=== PATIENT | female | born 1945 | race Caucasian/White ===

== ENCOUNTER 2018-02-11 16:00 | Inpatient (IN) | payer MEDICARE, OTHER ==
--- NOTE | 2018-02-11 16:19 | ED Physician Chart ---
ED Chief Complaint/HPI - Patient Information Date Seen:: 02/11/18 Time Seen:: 16:15 Chief Complaint:: Agitation History of Present Illness:: onset x 2 days of agitation and hostile behavior; no report of trauma, SIs, H/as , neck pain, C/P, SOB, Abd. Pain, A/N/V/D/C, fever, chills, or urinary s/s Allergies:: Allergies Allergy/AdvReac Type Severity Reaction Status Date / Time No Known Allergies Allergy Verified 02/11/18 16:09 Historian:: Patient, EMS Review:: Nurse's Note Reviewed, Old Chart Reviewed, EMS run form Reviewed ED Review of Systems - Review of Systems General/Constitutional: No fever, No chills, No weight loss, No weakness, No diaphoresis, No edema, No loss of appetite Skin: No skin lesions, No rash, No bruising Head: No headache, No light-headedness Eyes: No loss of vision, No pain, No diplopia ENT: No earache, No nasal drainage, No sore throat, No tinnitus Neck: No neck pain, No swelling, No thyromegaly, No stiffness, No mass noted Cardio Vascular: No chest pain, No palpitations, No PND, No orthopnea, No edema Pulmonary: No SOB, No cough, No sputum, No wheezing GI: No nausea, No vomiting, No diarrhea, No pain, No melena, No hematochezia, No constipation, No hematemesis G/U: No dysuria, No frequency, No hematuria, No nacturia Amortization Schedule Clerk: No vaginal discharge, No abnormal vaginal bleed, No contraction Musculoskeletal: No bone or joint pain, No back pain, No muscle pain Endocrine: No polyuria, No polydipsia Psychiatric: Prior psych history, Depression, Anxiety, No suicidal ideation, No homicidal ideation, No auditory hallucination, No visual hallucination Hematopoietic: No bruising, No lymphadenopathy Allergic/Immuno: No urticaria, No angioedema Neurological: No syncope, No focal symptoms, No weakness, No paresthesia, No headache, No seizure, No dizziness, Confusion, No vertigo ED Past Medical History - Past Medical History Obtainable: Yes Past Medical History: HTN, Dementia Family History: HTN Social History: Non Smoker, No Alcohol, No Drug Use, Single, Care Facility Surgical History: None Psychiatricy History: Depression, Bipolar, Dementia Medication: Reviewed ED Physical Exam - Physical Examination General/Constitutional: Awake, Well-developed, well-nourished, Alert, No distress, GCS 15, Non-toxic appearing, Ambulatory Head: Atraumatic Eyes: Lids, conjuctiva normal, PERRL, EOMI Skin: Nl inspection, No rash, No skin lesions, No ecchymosis, Well hydrated, No lymphadenopathy ENMT: External ears, nose nl, TM canals nl, Nasal exam nl, Lips, teeth, gums nl , Oropharynx nl, Tonsils nl Neck: Nontender, Full ROM w/o pain, No JVD, No nuchal rigidity, No bruit, No mass, No stridor Respiratory: Nl effort/Exclusion, Clear to Auscultation, No Wheeze/Rhonchi/Rales Cardio Vascular: RRR, No murmur, gallop, rubs, NL S1 S2, Carotid/Femoral/Distal pulses equal bilaterally GI: No tenderness/rebounding/guarding, No organomegaly, No hernia, Normal BS's, Nondistended, No mass/bruits, No McBurney tenderness : No CVA tenderness Extremities: No tenderness or effusion, Full ROM, normal strength in all extremities, No edema, Normal digits & nails Neuro/Psych: DTR's symmetric, Normal sensory exam, Normal motor strength, Judgement/insight normal, Mood normal, Normal gait, No focal deficits Other Neuro/Psych comments:: + Psychomotor Agitation; no SIs; Mood/Affect: Labile; Disoriented and Confused Misc: Normal back, No paraspinal tenderness ED Labs/Radiology/EKG Results - Lab Results Comments:: unremarkable - EKG Interpretations EKG Time:: 16:30 Rate & Rhythm: 78; NSR Comments:: non-specific st-t changes ED Septic Shock - . Is Septic Shock (SBP<90, OR Lactate>4 mmol\L) present?: No ED Reassessment (Disposition) - Reassessment Reassessment Condition:: Improved - Diagnosis Diagnosis:: Dx: Agitation; Bipolar Disorder; Psychosis; Dementia; Medical Clearance; - Aftercare/Follow up Instructions Aftercare/Follow-Up Instructions:: Counseled pt regarding lab results/diagnosis & need follow up, Counseled pt & family regarding lab results/diagnosis & need follow up - Patient Disposition Discharge/Transfer:: Acute Care w/in this hosp Admitted to:: [facility] Condition at Disposition:: Stable, Improved ED Discharge Plan - Patient Disposition Instructions: Psychosis
[2018-02-11 16:33] LABS: % BASOPHILS 1.2 % (0.0-2.0); % EOSINOPHILS 4.2 % (0.0-5.0); % LYMPHOCYTES 20.6 % (20.0-50.0); % MONOCYTES 3.7 % (2.0-10.0); % NEUTROPHILS 70.3 % (40.0-80.0); BASOPHILE ABSOLUTE 0.1 Th/cumm (0-0.2); EOSINOPHILE ABSOLUTE 0.3 Th/cmm (0.1-0.4); HEMATOCRIT 37.3 % (41.0-60); HEMOGLOBIN 12.5 gm/dL (12-16); LYMPHOCYTE ABSOLUTE 1.6 Th/cmm (1.5-3.0); MEAN CELL VOLUME 91.1 fl (81-100); MEAN CORPUSCULAR HEMOGLOBIN 30.6 pg (27.0-31.0); MEAN CORPUSCULAR HGB CONC 33.5 pg (28.0-36.0); MEAN PLATELET VOLUME 7.5 fl; MONOCYTE ABSOLUTE 0.3 Th/cmm (0.3-1.0); NEUTROPHILE ABSOLUTE 5.5 Th/cmm (1.8-8.0); PLATELET COUNT 334 Th/cmm (150-400); RED CELL DISTRIBUTION WIDTH 12.9 % (11.5-20.0); WHITE BLOOD COUNT 7.8 Th/cmm (4.8-10.8)
[2018-02-11 16:52] LABS: ACETAMINOPHEN < 10.0 ug/mL (10.0-30.0); ALB/GLOB RATIO 1.7 (1.0-1.8); ALBUMIN 3.8 gm/dL (3.7-5.3); ALKALINE PHOSPHATASE 64 U/L (34-104); ANION GAP 12.7 (7.0-16.0); BILIRUBIN,TOTAL 0.2 mg/dL (0.3-1.0); BUN - UREA NITROGEN 23 mg/dL (7-25); CALCIUM SERUM 8.8 mg/dL (8.6-10.3); CARBON DIOXIDE 24.5 mEq/L (21.0-31.0); CHLORIDE 103 mEq/L (98-107); CHOLESTEROL 178 mg/dL (<200); CREATININE - SERUM 0.9 mg/dL (0.6-1.2); GLUCOSE 263 mg/dL (70-105); HDL -HIGH DENSITY LIPOPROTEIN 40 mg/dL (23-92); POTASSIUM SERUM 5.2 mEq/L (3.5-5.1); SALICYLATES (ASPIRIN) < 25.0 mg/L (30.0-100.0); SGOT 15 U/L (13-39); SGPT/ALT 23 U/L (7-52); SODIUM SERUM 135 mEq/L (136-145); TOTAL PROTEIN,SERUM 6.1 gm/dL (6.0-8.3); TRIGLYCERIDES 252 mg/dL (<150)
[2018-02-11] MEDS ORDERED: Maalox 30 mL Cup PO PRN (23:22)
[2018-02-11] MEDS ORDERED: Magnesium Hydroxide (MOM) 30 mL UDC PO PRN (23:22)
[2018-02-11 23:37] VITALS: BP 123/61
[2018-02-12] MEDS ORDERED: APAP/Codeine 300 mg/30 mg Tab PO PRN (06:49)
[2018-02-12] MEDS ORDERED: ENALAPRIL MALEATE 10 MG PO SCH (09:00)
[2018-02-12] MEDS ORDERED: [UNRECOGNIZED DRUG - OTHER] TP SCH (09:00)
--- NOTE | 2018-02-12 09:33 | History and Physical ---
History of Present Illness - HPI Chief Complaint: Increased in agitation HPI: Patient is a permanent resident of a SNF and was send for evaluation secondary to increased in agitation Vital Signs: Last Vital Signs Temp 98.0 F 02/12/18 05:35 Pulse 75 02/12/18 05:35 Resp 19 02/12/18 05:35 BP 119/51 02/12/18 05:35 Pulse Ox 96 02/12/18 05:35 Past Medical History Cardiovascular: Report: CAD, CHF, HTN, Other (Old ID) Pulmonary: Report: No Pertinent Hx [employer]: Report: No Pertinent Hx GI: Report: No Pertinent Hx Psych: Report: No Pertinent Hx Musculoskeletal: Report: No Pertinent Hx Rheumatologic: Report: No pertinent Hx Infectious Disease: Report: No Pertinent Hx Renal/: Report: No Pertinent Hx Endocrine: Report: Diabetes Dermatology: Report: No Pertinent Hx - Past Surgical History Past Surgical History: No pertinent Hx Family Medical History - Family Member Mother History Unknown: Yes Ethnicity: Unknown Living Status: Unknown Hx Family Cancer: (Unknown) Hx Family Coronary Artery Disease: (Unknown) Hx Family Congestive Heart Failure: (Unknown) Hx Family Hypertension: Yes Hx Family Stroke: (Unknown) Hx Family Diabetes: (Unknown) Hx Family Seizures: (Unknown) Hx Family Dementia: (Unknown) Hx Family AIDS: (Unknown) Hx Family COPD: (Unknown) Hx Family Hepatitis: (Unknown) Hx Family Psychiatric Problems: (Unknown) Hx Family Tuberculosis: (Unknown) Social History Smoke: No Alcohol: None Drugs: None Lives: Retirement Domestic Violence: Negative - Medications Home Medications: Home Medication Medication Instructions Recorded Type APAP/Codeine 300 mg/30 mg [Tylenol 1 tab PO TID PRN 02/11/18 History W/Codeine #3] Acetaminophen [Tylenol] 650 mg PO TID 02/11/18 History Aspirin [Aspirin Chewable] 81 mg PO DAILY 02/11/18 History Atorvastatin Calcium [Lipitor] 40 mg PO HS 02/11/18 History Bupropion HCl [Wellbutrin Xl] 150 mg PO DAILY 02/11/18 History Enalapril Maleate 10 mg PO DAILY 02/11/18 History Glimepiride 2 mg PO DAILY 02/11/18 History Hydroxychloroquine [Plaquenil*] 200 mg PO BID 02/11/18 History Insulin Glargine, Recombinan 5 units SUBQ QAM 02/11/18 History [Lantus] Insulin Human Regular [NovoLIN R] 0 units SUBQ BID 02/11/18 History Magnesium Hydroxide [Milk of 30 ml PO DAILY PRN 02/11/18 History Magnesia] Tad 1 unit TP DAILY 02/11/18 History aripIPRAZOLE [Abilify] 10 mg PO HS 02/11/18 History metFORMIN [Glucophage] 500 mg PO BID 02/11/18 History - Allergies Allergies/Adverse Reactions: Allergies Allergy/AdvReac Type Severity Reaction Status Date / Time No Known Allergies Allergy Verified 02/11/18 16:09 Review of Systems - Review of Systems Constitutional: Report: No Significant Eyes: Report: No Significant ENT: Report: No Significant Respiratory: Report: No Significant Cardiovascular: Report: No Significant Gastrointestinal: Report: No Significant Genitourinary: Report: No Significant Musculoskeletal: Report: No Significant Skin: Report: No Significant Neurological: Report: No Significant Physical Exam - Physical Exam HEENT: Report: Ears Nose Throat within normal limits Neck: Report: Within normal limits Cardiovascular Systems: Report: Regular, Rate and Rhythm Respiratory: Report: Breath Sounds are within normal limits Abdomen: Report: Non-tender to palpation Back: Report: Inspection of back is within normal limits. Extremities: Report: Non-tender to palpation. Skin: Report: Color of skin is within normal limits, Warm, Dry Neuro/Psych: Report: Disoriented to name time or place - Assessment Assessment: Current Active Problems Problem Status Onset INCREASED CONFUSION AND POOR ADLS Acute Patient is awake, resting in bed, confused, not oriented. Dx: Increased in agitation, DM, HTN, CAD, CHF. - Plan Plan: Patient under Psychiatric care, will continue with SNF meds. Will continue to monitor.
[2018-02-12] MEDS: Hydroxychloroquine 200 mg Tab PO SCH ×2 (10:01→17:36)
[2018-02-12] MEDS: buPROPion XL 150 mg T 24 H PO SCH (10:03)
[2018-02-12] MEDS: Aspirin 81mg Chewable Tab PO SCH (10:03)
[2018-02-12] MEDS: INSULIN ASPART SLIDING SCALE 100 UNITS/ML UNIT SUBQ SCH ×2 (17:35→17:38)
[2018-02-12] MEDS: Insulin Detemir 100 units/mL 10mL Vial SUBQ SCH (17:36)
--- NOTE | 2018-02-12 19:45 | Psychosocial Evaluation ---
DATE OF SERVICE: 02/12/2018 IDENTIFYING DATA: The patient is a 73-year-old woman, resident of [facility] in [place] Information obtained by directly interviewing the patient as well as reviewing the admission papers and they are reliable. JUSTIFICATION FOR HOSPITALIZATION: The patient is admitted on a voluntary basis in view of her agitation and screaming and yelling behaviors. CHIEF COMPLAINT: "I am in pain." HISTORY OF PRESENT ILLNESS: This is the first psychiatric hospitalization to [facility] for this patient who is reported to have been screaming and yelling and could not be contained and the patient has to be transferred over here for further care. The patient is stating that she is in too much of pain on his listening to her. The patient is getting easily irritable. The patient is getting very agitated. PAST PSYCHIATRIC HISTORY: Details are not known. MEDICAL HISTORY AND PHYSICAL EXAMINATION: Requested done by Dr. Allen. The patient has been diagnosed to have diabetes mellitus, hypertension, coronary artery disease and congestive heart failure. MENTAL STATUS EXAMINATION: The patient is a 73-year-old moderately obese, superficially cooperative. Eye contact is poor. Mood is noted to be irritable. Affect is constricted. Insight and judgment are very much impaired. Impulse control is very poor. Coping skills are noted to very poor. The patient is very paranoid, but denies any command hallucinations. The patient is alert and awake. The patient is fully aware that she is in the hospital. Her main focus is pain medications. The patient's attention span and concentration are noted to be poor. DIAGNOSTIC IMPRESSION: AXIS I: 1. Major depressive disorder, recurrent with psychotic symptoms. 2. Dementia and behavioral change, secondary trait. AXIS II: None. AXIS III: As per Dr. Allen. IMMEDIATE TREATMENT PLAN: The patient is going to be closely monitored on the inpatient unit, provided with supportive psychotherapy, once stabilized, the patient is going to be discharged to the family for followup. Discharged to the alf facility for further followup. JOB# [id number]
[2018-02-12 20:13] LABS: A1C % 7.4 % (4.0-6.0)
[2018-02-12] MEDS ORDERED: Non-Formulary Item 1 EA (Atorvastatin Calcium [Lipitor] 40 MG) PO SCH (21:00)
[2018-02-13] MEDS: INSULIN ASPART SLIDING SCALE 100 UNITS/ML UNIT SUBQ SCH ×2 (08:11→17:48)
[2018-02-13] MEDS: Insulin Detemir 100 units/mL 10mL Vial SUBQ SCH (08:11)
[2018-02-13] MEDS: Hydroxychloroquine 200 mg Tab PO SCH ×2 (08:56→17:47)
[2018-02-13] MEDS: buPROPion XL 150 mg T 24 H PO SCH (08:56)
[2018-02-13] MEDS: Aspirin 81mg Chewable Tab PO SCH (08:56)
--- NOTE | 2018-02-13 09:57 | General Progress Note ---
Subjective - Review of Systems Service Date: 02/13/18 Subjective: Confused Objective - Results Result Diagrams: 02/11/18 16:27 02/11/18 16:27 Recent Labs: Laboratory Last Values WBC 7.8 Th/cmm (4.8-10.8) 02/11/18 16:27 RBC 4.10 Mil/cmm (3.80-5.20) 02/11/18 16:27 Hgb 12.5 gm/dL (12-16) 02/11/18 16:27 Hct 37.3 % (41.0-60) L 02/11/18 16:27 MCV 91.1 fl (81-100) 02/11/18 16:27 MCH 30.6 pg (27.0-31.0) 02/11/18 16: MCHC Differential 33.5 pg (28.0-36.0) 02/11/18 16:27 RDW 12.9 % (11.5-20.0) 02/11/18 16:27 Plt Count 334 Th/cmm (150-400) 02/11/18 16:27 MPV 7.5 fl 02/11/18 16:27 Neutrophils % 70.3 % (40.0-80.0) 02/11/18 16: Lymphocytes % 20.6 % (20.0-50.0) 02/11/18 16: Monocytes % 3.7 % (2.0-10.0) 02/11/18 16:27 Eosinophils % 4.2 % (0.0-5.0) 02/11/18 16:27 Basophils % 1.2 % (0.0-2.0) 02/11/18 16:27 Sodium 135 mEq/L (136-145) L 02/11/18 16:27 Potassium 5.2 mEq/L (3.5-5.1) H 02/11/18 16:27 Chloride 103 mEq/L (98-107) 02/11/18 16:27 Carbon Dioxide 24.5 mEq/L (21.0-31.0) 02/11/18 16:27 Anion Gap 12.7 (7.0-16.0) 02/11/18 16:27 BUN 23 mg/dL (7-25) 02/11/18 16:27 Creatinine 0.9 mg/dL (0.6-1.2) 02/11/18 16:27 Est GFR ( Amer) TNP 02/11/18 16:27 Est GFR (Non-Af Amer) TNP 02/11/18 16:27 BUN/Creatinine Ratio 25.6 02/11/18 16:27 Glucose 263 mg/dL (70-105) H 02/11/18 16:27 Hemoglobin A1c % 7.4 % (4.0-6.0) H 02/11/18 16:27 Calcium 8.8 mg/dL (8.6-10.3) 02/11/18 16:27 Total Bilirubin 0.2 mg/dL (0.3-1.0) L 02/11/18 16:27 AST 15 U/L (13-39) 02/11/18 16:27 ALT 23 U/L (7-52) 02/11/18 16:27 Alkaline Phosphatase 64 U/L (34-104) 02/11/18 16:27 Total Protein 6.1 gm/dL (6.0-8.3) 02/11/18 16:27 Albumin 3.8 gm/dL (3.7-5.3) 02/11/18 16:27 Globulin 2.3 gm/dL 02/11/18 16:27 Albumin/Globulin Ratio 1.7 (1.0-1.8) 02/11/18 16:27 Triglycerides 252 mg/dL (<150) H 02/11/18 16:27 Cholesterol 178 mg/dL (<200) 02/11/18 16:27 LDL Cholesterol Direct 99 mg/dL (75-193) 02/11/18 16:27 HDL Cholesterol 40 mg/dL (23-92) 02/11/18 16:27 TSH 1.26 uIU/ml (0.34-5.60) 02/11/18 16:27 Salicylates < 25.0 mg/L (30.0-100.0) L 02/11/18 16:27 Acetaminophen < 10.0 ug/mL (10.0-30.0) L 02/11/18 16:27 Ethyl Alcohol < 10 mg/dL (0-10) 02/11/18 16:27 - Physical Exam Vitals and I&O: Vital Signs Temp 98.8 F 02/12/18 15:40 Pulse 80 02/13/18 08:10 Resp 20 02/12/18 20:00 BP 110/74 02/13/18 08:10 Pulse Ox 98 02/12/18 15:40 Intake & Output 02/12/18 02/13/18 02/13/18 18:59 06:59 18:59 Intake Total 840 Balance 840 Intake: Oral 840 Other: # Voids 3 # Bowel Movements 0 Active Medications: Current Medications Acetaminophen (Tylenol) 650 mg PO Q4HR PRN PRN Reason: Mild Pain / Temp above 100 Stop: 04/12/18 23:21 Last Admin: 02/13/18 02:37 Dose: 650 mg Acetaminophen/Codeine Phosphate (Tylenol W/Codeine #3) 1 tab PO TID PRN PRN Reason: PAIN Stop: 04/13/18 06:48 Al Hydrox/Mg Hydrox/Simethicone (Maalox) 30 ml PO Q4HR PRN PRN Reason: GI DISTRESS Stop: 04/12/18 23:21 Aripiprazole (Abilify) 5 mg PO DAILY URSZULA PRN Reason: Protocol Stop: 04/14/18 08:59 Last Admin: 02/13/18 08:56 Dose: 5 mg Aspirin (Aspirin Chewable) 81 mg PO DAILY REPLACED BY [facility] Stop: 04/13/18 08:59 Last Admin: 02/13/18 08:56 Dose: 81 mg Atorvastatin Calcium (Lipitor) 40 mg PO HS REPLACED BY [facility] Stop: 04/13/18 20:59 Last Admin: 02/12/18 21:00 Dose: 40 mg Bupropion HCl (Wellbutrin Xl) 150 mg PO DAILY REPLACED BY [facility] PRN Reason: Protocol Stop: 04/13/18 08:59 Last Admin: 02/13/18 08:56 Dose: 150 mg Enalapril Maleate (Vasotec) 10 mg PO DAILY REPLACED BY [facility] Stop: 04/13/18 08:59 Last Admin: 02/13/18 08:10 Dose: Not Given Glimepiride (Amaryl) 2 mg PO DAILY REPLACED BY [facility] Stop: 04/13/18 08:59 Last Admin: 02/13/18 08:56 Dose: 2 mg Hydroxychloroquine Sulfate (Plaquenil) 200 mg PO BID REPLACED BY [facility] Stop: 04/13/18 08:59 Last Admin: 02/13/18 08:56 Dose: 200 mg Insulin Aspart (Novolog Insulin Sliding Scale) 0 units SUBQ BID URSZULA PRN Reason: Protocol Stop: 04/13/18 08:59 Last Admin: 02/13/18 08:11 Dose: Not Given Insulin Detemir (Levemir Insulin) 5 units SUBQ DAILY URSZULA PRN Reason: Protocol Stop: 04/13/18 08:59 Last Admin: 02/13/18 08:11 Dose: Not Given Lorazepam (Ativan) 0.5 mg PO Q4HR PRN; Protocol PRN Reason: Anxiety Stop: 03/13/18 23:21 Magnesium Hydroxide (Milk Of Magnesia) 30 ml PO HS PRN PRN Reason: Constipation Metformin HCl (Glucophage) 500 mg PO BIDWM URSZULA Stop: 04/13/18 07:59 Last Admin: 02/13/18 08:56 Dose: 500 mg Zolpidem Tartrate (Ambien) 5 mg PO HS PRN PRN Reason: Insomnia Stop: 04/12/18 23:21 General: Alert, Other (Confused) HEENT: Atraumatic Neck: Supple Cardiovascular: Regular rate Lungs: Clear to auscultation Abdomen: Bowel sounds Extremities: Other (No edema) Neurological: Other (Unstable gait) Skin: Other (Warm and dry) Psych/Mental Status: Other (Confused not oriented) Assessment/Plan - Problem List Patient Problems: All Active Problems INCREASED CONFUSION AND POOR ADLS (Acute) - Assessment Assessment: Current Active Problems Problem Status Onset INCREASED CONFUSION AND POOR ADLS Acute Patient is awake, resting in bed, confused, not oriented. Dx: Increased in agitation, DM, HTN, CAD, CHF. - Plan Plan: Patient under Psychiatric care, will continue with SNF meds. Will continue to monitor.
--- NOTE | 2018-02-14 02:32 | Progress Notes ---
DATE: 02/13/2018 SUBJECTIVE: Staff was spoken to. The patient is interviewed. Mood is noted to be irritable. Affect is constricted. Insight and judgment are noted to be still impaired. Impulse control is noted to be poor. The patient is stating that she is under too much of pain and needs to be seen by doctor. The patient has been given lorazepam to contain her anxiety. The patient is currently on bupropion and has been able to tolerate the medications. No side effects to the medications are noted; however, the patient is noted to be still depressed. PLAN: To continue the patient with the Wellbutrin and the use of Ativan on a p.r.n. basis and follow the patient up. [facility]# [id number]
[2018-02-14 07:48] LABS: % BASOPHILS 0.8 % (0.0-2.0); % LYMPHOCYTES 27.5 % (20.0-50.0); % NEUTROPHILS 61.7 % (40.0-80.0); BASOPHILE ABSOLUTE 0.1 Th/cumm (0-0.2); EOSINOPHILE ABSOLUTE 0.2 Th/cmm (0.1-0.4); HEMATOCRIT 36.7 % (41.0-60); HEMOGLOBIN 12.3 gm/dL (12-16); LYMPHOCYTE ABSOLUTE 1.8 Th/cmm (1.5-3.0); MEAN CELL VOLUME 90.1 fl (81-100); MEAN CORPUSCULAR HEMOGLOBIN 30.1 pg (27.0-31.0); MEAN CORPUSCULAR HGB CONC 33.4 pg (28.0-36.0); MEAN PLATELET VOLUME 7.8 fl; MONOCYTE ABSOLUTE 0.5 Th/cmm (0.3-1.0); NEUTROPHILE ABSOLUTE 4.1 Th/cmm (1.8-8.0); PLATELET COUNT 323 Th/cmm (150-400); RED BLOOD COUNT 4.08 Mil/cmm (3.80-5.20); RED CELL DISTRIBUTION WIDTH 12.2 % (11.5-20.0); WHITE BLOOD COUNT 6.7 Th/cmm (4.8-10.8)
[2018-02-14 08:11] LABS: ALB/GLOB RATIO 1.4 (1.0-1.8); ALBUMIN 3.6 gm/dL (3.7-5.3); ALKALINE PHOSPHATASE 56 U/L (34-104); ANION GAP 11.3 (7.0-16.0); BILIRUBIN,TOTAL 0.4 mg/dL (0.3-1.0); BUN - UREA NITROGEN 16 mg/dL (7-25); CARBON DIOXIDE 24.9 mEq/L (21.0-31.0); CHLORIDE 105 mEq/L (98-107); CREATININE - SERUM 0.5 mg/dL (0.6-1.2); GLUCOSE 152 mg/dL (70-105); POTASSIUM SERUM 4.2 mEq/L (3.5-5.1); SGOT 13 U/L (13-39); SGPT/ALT 15 U/L (7-52); SODIUM SERUM 137 mEq/L (136-145); TOTAL PROTEIN,SERUM 6.2 gm/dL (6.0-8.3)
--- NOTE | 2018-02-14 08:55 | General Progress Note ---
Subjective - Review of Systems Service Date: 02/14/18 Subjective: Confused Objective - Results Result Diagrams: 02/14/18 07:07 02/14/18 07:07 Recent Labs: Laboratory Last Values WBC 6.7 Th/cmm (4.8-10.8) 02/14/18 07:07 RBC 4.08 Mil/cmm (3.80-5.20) 02/14/18 07:07 Hgb 12.3 gm/dL (12-16) 02/14/18 07:07 Hct 36.7 % (41.0-60) L 02/14/18 07:07 MCV 90.1 fl (81-100) 02/14/18 07:07 MCH 30.1 pg (27.0-31.0) 02/14/18 07:07 MCHC Differential 33.4 pg (28.0-36.0) 02/14/18 07:07 RDW 12.2 % (11.5-20.0) 02/14/18 07:07 Plt Count 323 Th/cmm (150-400) 02/14/18 07:07 MPV 7.8 fl 02/14/18 07:07 Neutrophils % 61.7 % (40.0-80.0) 02/14/18 07:07 Lymphocytes % 27.5 % (20.0-50.0) 02/14/18 07:07 Monocytes % 7.0 % (2.0-10.0) 02/14/18 07:07 Eosinophils % 3.0 % (0.0-5.0) 02/14/18 07:07 Basophils % 0.8 % (0.0-2.0) 02/14/18 07:07 Sodium 137 mEq/L (136-145) 02/14/18 07:07 Potassium 4.2 mEq/L (3.5-5.1) 02/14/18 07:07 Chloride 105 mEq/L (98-107) 02/14/18 07:07 Carbon Dioxide 24.9 mEq/L (21.0-31.0) 02/14/18 07:07 Anion Gap 11.3 (7.0-16.0) 02/14/18 07:07 BUN 16 mg/dL (7-25) 02/14/18 07:07 Creatinine 0.5 mg/dL (0.6-1.2) L 02/14/18 07:07 Est GFR ( Amer) TNP 02/14/18 07:07 Est GFR (Non-Af Amer) TNP 02/14/18 07:07 BUN/Creatinine Ratio 32.0 02/14/18 07:07 Glucose 152 mg/dL (70-105) H 02/14/18 07:07 Hemoglobin A1c % 7.4 % (4.0-6.0) H 02/11/18 16:27 Calcium 9.0 mg/dL (8.6-10.3) 02/14/18 07:07 Total Bilirubin 0.4 mg/dL (0.3-1.0) 02/14/18 07:07 AST 13 U/L (13-39) 02/14/18 07:07 ALT 15 U/L (7-52) 02/14/18 07:07 Alkaline Phosphatase 56 U/L (34-104) 02/14/18 07:07 Total Protein 6.2 gm/dL (6.0-8.3) 02/14/18 07:07 Albumin 3.6 gm/dL (3.7-5.3) L 02/14/18 07:07 Globulin 2.6 gm/dL 02/14/18 07:07 Albumin/Globulin Ratio 1.4 (1.0-1.8) 02/14/18 07:07 Triglycerides 252 mg/dL (<150) H 02/11/18 16:27 Cholesterol 178 mg/dL (<200) 02/11/18 16:27 LDL Cholesterol Direct 99 mg/dL (75-193) 02/11/18 16:27 HDL Cholesterol 40 mg/dL (23-92) 02/11/18 16:27 TSH 1.26 uIU/ml (0.34-5.60) 02/11/18 16:27 Salicylates < 25.0 mg/L (30.0-100.0) L 02/11/18 16:27 Acetaminophen < 10.0 ug/mL (10.0-30.0) L 02/11/18 16:27 Ethyl Alcohol < 10 mg/dL (0-10) 02/11/18 16:27 RPR NONREACTIVE (NONREACTIVE) 02/11/18 16:27 - Physical Exam Vitals and I&O: Vital Signs Temp 98.2 F 02/13/18 16:22 Pulse 70 02/13/18 16:22 Resp 20 02/13/18 19:16 BP 120/60 02/13/18 16:22 Pulse Ox 98 02/13/18 16:22 Active Medications: Current Medications Acetaminophen (Tylenol) 650 mg PO Q4HR PRN PRN Reason: Mild Pain / Temp above 100 Stop: 04/12/18 23:21 Last Admin: 02/13/18 17:47 Dose: 650 mg Acetaminophen/Codeine Phosphate (Tylenol W/Codeine #3) 1 tab PO TID PRN PRN Reason: PAIN Stop: 04/13/18 06:48 Al Hydrox/Mg Hydrox/Simethicone (Maalox) 30 ml PO Q4HR PRN PRN Reason: GI DISTRESS Stop: 04/12/18 23:21 Aripiprazole (Abilify) 5 mg PO DAILY URSZULA PRN Reason: Protocol Stop: 04/14/18 08:59 Last Admin: 02/13/18 08:56 Dose: 5 mg Aspirin (Aspirin Chewable) 81 mg PO DAILY [facility] Stop: 04/13/18 08:59 Last Admin: 02/13/18 08:56 Dose: 81 mg Atorvastatin Calcium (Lipitor) 40 mg PO HS [facility] Stop: 04/13/18 20:59 Last Admin: 02/13/18 21:01 Dose: 40 mg Bupropion HCl (Wellbutrin Xl) 150 mg PO DAILY URSZULA PRN Reason: Protocol Stop: 04/13/18 08:59 Last Admin: 02/13/18 08:56 Dose: 150 mg Enalapril Maleate (Vasotec) 10 mg PO DAILY URSZULA Stop: 04/13/18 08:59 Last Admin: 02/13/18 08:10 Dose: Not Given Glimepiride (Amaryl) 2 mg PO DAILY [facility] Stop: 04/13/18 08:59 Last Admin: 02/13/18 08:56 Dose: 2 mg Hydroxychloroquine Sulfate (Plaquenil) 200 mg PO BID URSZULA Stop: 04/13/18 08:59 Last Admin: 02/13/18 17:47 Dose: 200 mg Insulin Aspart (Novolog Insulin Sliding Scale) 0 units SUBQ BID URSZULA PRN Reason: Protocol Stop: 04/13/18 08:59 Last Admin: 02/13/18 17:48 Dose: Not Given Insulin Detemir (Levemir Insulin) 5 units SUBQ DAILY URSZULA PRN Reason: Protocol Stop: 04/13/18 08:59 Last Admin: 02/13/18 08:11 Dose: Not Given Lorazepam (Ativan) 0.5 mg PO Q4HR PRN; Protocol PRN Reason: Anxiety Stop: 03/13/18 23:21 Magnesium Hydroxide (Milk Of Magnesia) 30 ml PO HS PRN PRN Reason: Constipation Metformin HCl (Glucophage) 500 mg PO BIDWM URSZULA Stop: 04/13/18 07:59 Last Admin: 02/13/18 17:47 Dose: 500 mg Zolpidem Tartrate (Ambien) 5 mg PO HS PRN PRN Reason: Insomnia Stop: 04/12/18 23:21 General: Alert, Other (Confused) HEENT: Atraumatic Neck: Supple Cardiovascular: Regular rate Lungs: Clear to auscultation Abdomen: Bowel sounds Extremities: Other (No edema) Neurological: Other (Unstable gait) Skin: Other (Warm and dry) Psych/Mental Status: Other (Confused not oriented) Assessment/Plan - Problem List Patient Problems: All Active Problems INCREASED CONFUSION AND POOR ADLS (Acute) - Assessment Assessment: Current Active Problems Problem Status Onset INCREASED CONFUSION AND POOR ADLS Acute Patient is awake, resting in bed, confused, not oriented. Dx: Increased in agitation, DM, HTN, CAD, CHF. - Plan Plan: Patient under Psychiatric care, will continue with SNF meds. Will continue to monitor.
[2018-02-14] MEDS: Hydroxychloroquine 200 mg Tab PO SCH ×2 (09:55→17:19)
[2018-02-14] MEDS: buPROPion XL 150 mg T 24 H PO SCH (09:55)
[2018-02-14] MEDS: Aspirin 81mg Chewable Tab PO SCH (09:55)
[2018-02-14] MEDS: INSULIN ASPART SLIDING SCALE 100 UNITS/ML UNIT SUBQ SCH ×2 (09:55→17:20)
[2018-02-14] MEDS: Insulin Detemir 100 units/mL 10mL Vial SUBQ SCH (09:56)
--- NOTE | 2018-02-15 04:31 | Progress Notes ---
DATE: 02/14/2018 PSYCHIATRIC PROGRESS NOTE Staff was spoken to. The patient is interviewed. Mood is noted to be depressed. Affect is constricted. The patient is isolative and withdrawn. The patient has been reluctant to take the medication earlier, but finally has agreed to take it. Insight and judgment at this time are noted to be still impaired. Impulse control seems to be limited. Coping skills are noted to be limited. The patient has been getting easily frustrated. ASSESSMENT: The patient is still impulsive. PLAN: To continue the patient with the supportive therapy and followup. JOB# [id number]
[2018-02-15] MEDS: Hydroxychloroquine 200 mg Tab PO SCH ×2 (08:27→17:41)
[2018-02-15] MEDS: Aspirin 81mg Chewable Tab PO SCH (08:28)
[2018-02-15] MEDS: buPROPion XL 150 mg T 24 H PO SCH (08:29)
[2018-02-15] MEDS: INSULIN ASPART SLIDING SCALE 100 UNITS/ML UNIT SUBQ SCH ×2 (08:29→17:26)
--- NOTE | 2018-02-15 09:34 | General Progress Note ---
Subjective - Review of Systems Service Date: 02/15/18 Subjective: Confused Objective - Results Result Diagrams: 02/14/18 07:07 02/14/18 07:07 Recent Labs: Laboratory Last Values WBC 6.7 Th/cmm (4.8-10.8) 02/14/18 07:07 RBC 4.08 Mil/cmm (3.80-5.20) 02/14/18 07:07 Hgb 12.3 gm/dL (12-16) 02/14/18 07:07 Hct 36.7 % (41.0-60) L 02/14/18 07:07 MCV 90.1 fl (81-100) 02/14/18 07:07 MCH 30.1 pg (27.0-31.0) 02/14/18 07:07 MCHC Differential 33.4 pg (28.0-36.0) 02/14/18 07:07 RDW 12.2 % (11.5-20.0) 02/14/18 07:07 Plt Count 323 Th/cmm (150-400) 02/14/18 07:07 MPV 7.8 fl 02/14/18 07:07 Neutrophils % 61.7 % (40.0-80.0) 02/14/18 07:07 Lymphocytes % 27.5 % (20.0-50.0) 02/14/18 07:07 Monocytes % 7.0 % (2.0-10.0) 02/14/18 07:07 Eosinophils % 3.0 % (0.0-5.0) 02/14/18 07:07 Basophils % 0.8 % (0.0-2.0) 02/14/18 07:07 Sodium 137 mEq/L (136-145) 02/14/18 07:07 Potassium 4.2 mEq/L (3.5-5.1) 02/14/18 07:07 Chloride 105 mEq/L (98-107) 02/14/18 07:07 Carbon Dioxide 24.9 mEq/L (21.0-31.0) 02/14/18 07:07 Anion Gap 11.3 (7.0-16.0) 02/14/18 07:07 BUN 16 mg/dL (7-25) 02/14/18 07:07 Creatinine 0.5 mg/dL (0.6-1.2) L 02/14/18 07:07 Est GFR ( Amer) TNP 02/14/18 07:07 Est GFR (Non-Af Amer) TNP 02/14/18 07:07 BUN/Creatinine Ratio 32.0 02/14/18 07:07 Glucose 152 mg/dL (70-105) H 02/14/18 07:07 Hemoglobin A1c % 7.4 % (4.0-6.0) H 02/11/18 16:27 Calcium 9.0 mg/dL (8.6-10.3) 02/14/18 07:07 Total Bilirubin 0.4 mg/dL (0.3-1.0) 02/14/18 07:07 AST 13 U/L (13-39) 02/14/18 07:07 ALT 15 U/L (7-52) 02/14/18 07:07 Alkaline Phosphatase 56 U/L (34-104) 02/14/18 07:07 Total Protein 6.2 gm/dL (6.0-8.3) 02/14/18 07:07 Albumin 3.6 gm/dL (3.7-5.3) L 02/14/18 07:07 Globulin 2.6 gm/dL 02/14/18 07:07 Albumin/Globulin Ratio 1.4 (1.0-1.8) 02/14/18 07:07 Triglycerides 252 mg/dL (<150) H 02/11/18 16:27 Cholesterol 178 mg/dL (<200) 02/11/18 16:27 LDL Cholesterol Direct 99 mg/dL (75-193) 02/11/18 16:27 HDL Cholesterol 40 mg/dL (23-92) 02/11/18 16:27 TSH 1.26 uIU/ml (0.34-5.60) 02/11/18 16:27 Salicylates < 25.0 mg/L (30.0-100.0) L 02/11/18 16:27 Acetaminophen < 10.0 ug/mL (10.0-30.0) L 02/11/18 16:27 Ethyl Alcohol < 10 mg/dL (0-10) 02/11/18 16:27 RPR NONREACTIVE (NONREACTIVE) 02/11/18 16:27 - Physical Exam Vitals and I&O: Vital Signs Temp 98.2 F 02/15/18 05:41 Pulse 72 02/15/18 08:28 Resp 18 02/15/18 05:41 BP 114/62 02/15/18 08:28 Pulse Ox 98 02/15/18 05:41 Intake & Output 02/14/18 02/15/18 02/15/18 18:59 06:59 18:59 Intake Total 480 Balance 480 Intake: Oral 480 Other: # Voids 2 Active Medications: Current Medications Acetaminophen (Tylenol) 650 mg PO Q4HR PRN PRN Reason: Mild Pain / Temp above 100 Stop: 04/12/18 23:21 Last Admin: 02/13/18 17:47 Dose: 650 mg Acetaminophen/Codeine Phosphate (Tylenol W/Codeine #3) 1 tab PO TID PRN PRN Reason: PAIN Stop: 04/13/18 06:48 Al Hydrox/Mg Hydrox/Simethicone (Maalox) 30 ml PO Q4HR PRN PRN Reason: GI DISTRESS Stop: 04/12/18 23:21 Aripiprazole (Abilify) 5 mg PO DAILY [facility] PRN Reason: Protocol Stop: 04/14/18 08:59 Last Admin: 02/15/18 08:29 Dose: 5 mg Aspirin (Aspirin Chewable) 81 mg PO DAILY [facility] Stop: 04/13/18 08:59 Last Admin: 02/15/18 08:28 Dose: 81 mg Atorvastatin Calcium (Lipitor) 40 mg PO HS [facility] Stop: 04/13/18 20:59 Last Admin: 02/14/18 21:17 Dose: 40 mg Bupropion HCl (Wellbutrin Xl) 150 mg PO DAILY [facility] PRN Reason: Protocol Stop: 04/13/18 08:59 Last Admin: 02/15/18 08:29 Dose: 150 mg Enalapril Maleate (Vasotec) 10 mg PO DAILY [facility] Stop: 04/13/18 08:59 Last Admin: 02/15/18 08:28 Dose: 10 mg Glimepiride (Amaryl) 2 mg PO DAILY [facility] Stop: 04/13/18 08:59 Last Admin: 02/15/18 08:29 Dose: 2 mg Hydroxychloroquine Sulfate (Plaquenil) 200 mg PO BID [facility] Stop: 04/13/18 08:59 Last Admin: 02/15/18 08:27 Dose: 200 mg Insulin Aspart (Novolog Insulin Sliding Scale) 0 units SUBQ BID [facility] PRN Reason: Protocol Stop: 04/13/18 08:59 Last Admin: 02/15/18 08:29 Dose: Not Given Insulin Aspart (Novolog Insulin Sliding Scale) 0 units SUBQ BID [facility] PRN Reason: Protocol Stop: 04/16/18 16:59 Lorazepam (Ativan) 0.5 mg PO Q4HR PRN; Protocol PRN Reason: Anxiety Stop: 03/13/18 23:21 Last Admin: 02/14/18 21:17 Dose: 0.5 mg Magnesium Hydroxide (Milk Of Magnesia) 30 ml PO HS PRN PRN Reason: Constipation Metformin HCl (Glucophage) 500 mg PO BIDWM [facility] Stop: 04/13/18 07:59 Last Admin: 02/15/18 08:28 Dose: 500 mg Zolpidem Tartrate (Ambien) 5 mg PO HS PRN PRN Reason: Insomnia Stop: 04/12/18 23:21 Last Admin: 02/14/18 21:17 Dose: 5 mg General: Alert, Other (Confused) HEENT: Atraumatic Neck: Supple Cardiovascular: Regular rate Lungs: Clear to auscultation Abdomen: Bowel sounds Extremities: Other (No edema) Neurological: Other (Unstable gait) Skin: Other (Warm and dry) Psych/Mental Status: Other (Confused not oriented) Assessment/Plan - Problem List Patient Problems: All Active Problems INCREASED CONFUSION AND POOR ADLS (Acute) - Assessment Assessment: Current Active Problems Problem Status Onset INCREASED CONFUSION AND POOR ADLS Acute Patient is awake, resting in bed, confused, not oriented. Dx: Increased in agitation, DM, HTN, CAD, CHF. - Plan Plan: Patient under Psychiatric care, will continue with SNF meds. Will continue to monitor. Nutritional Asmnt/Malnutr-PDOC - Dietary Evaluation Malnutrition Findings (Please click <Entered> for more info): Nutritional Asmnt/Malnutrition Start: 02/14/18 15: 07 Text: Status: Complete Freq: Document 02/14/18 15:07 YULIANA (Rec: 02/14/18 15:18 ARIANNA [email or web address]) Nutritional Asmnt/Malnutrition Patient General Information Nutritional Screening High Risk Diagnosis psychosis Pertinent Medical Hx/Surgical Hx CAD, CHF, HTN, old [place], DM Subjective Information Pt seen lying in bed at time of visit, very confused, not able to communicate. Per EMR, PO intake 50-100%, 100% x 3 meals yesterday 02/13. Pt blood sugar 263 at admission and pt refused insulin noted. Current Diet Order/ Nutrition Support [facility] [place] 45, [facility] soft ground Pertinent Medications novolog, levemir, glucophage Pertinent Labs 02/11 na 135, K 5.2, glucose 263 , A1c 7.4 02/14 Cr 0.5, glucose 152, Alb 3 .6 Nutritional Hx/Data Height 1.63 m Height (Calculated Centimeters) 162.6 Current Weight (lbs) 72.575 kg Weight (Calculated Kilograms) 72.6 Weight (Calculated Grams) 95980.8 [place] Body Weight 120 Body Mass Index (BMI) 27.4 Weight Status Overweight GI Symptoms GI Symptoms None Last BM 0 Difficult in: None Skin Integrity/Comment: intact, sherron 15 Current %PO Good (75-100%) Estimated Nutritional Goals BEE in Kcals: Adj wt of IBW Calories/Kcals/Kg 25-30 Kcals Calculated 1677-7428 Protein: Adj wt of IBW Protein g/k-1.2 Protein Calculated 59-71 Fluid: ml 1475-1770ml (1ml/kcal) Nutritional Problem 1. Problem Problem altered nutrition related lab values Etiology hx of DM Signs/Symptoms: glucose 152-263, A1c 7.4 Malnutrition Alert Protein-Calorie Malnutrition N/A Is there a minimum of two criteria No selected? Query Text:Check all the applicable criteria. A minimum of two criteria are recommended for diagnosis of either severe or non-severe malnutrition. Intervention/Recommendation Comments 1. Continue with [facility] [place] 45 diet as ordered. Continue monitor blood sugar/POC. 2. Monitor PO intake, wt, labs and skin integrity 3. F/U as moderate risk in 3-5 days, 02/17-02/19 Expected Outcomes/Goals Expected Outcomes/Goals 1. PO intake to meet at least 75% of nutritional needs. 2. Wt stability, skin to remain intact, labs to approach WNL.
--- NOTE | 2018-02-15 16:36 | Progress Notes ---
DATE: 02/15/2018 SUBJECTIVE: Staff was spoken to. The patient is interviewed. Mood is noted to be irritable. Affect is constricted. The patient is stating that she has been having pain on the right side and doctor has not come to visit her. Coping skills are noted to be very poor. Mood is noted to be still depressed. Affect is constricted. ASSESSMENT: The patient is still depressed. PLAN: To continue the patient with the Wellbutrin and we encouraged the patient to verbalize the concerns rather than to act out. The patient is also on Abilify 5 mg to augment the antidepressant effect. ASSESSMENT: The patient is still depressed. Plan to continue the patient with the supportive therapy and followup. [facility]# [id number]
[2018-02-15] MEDS ORDERED: INSULIN ASPART SLIDING SCALE 100 UNITS/ML UNIT SUBQ SCH (17:00)
--- NOTE | 2018-02-15 19:35 | Consultation ---
DATE OF CONSULTATION: 02/14/2018 REQUESTING PHYSICIAN: Loida Curry MD. TYPE OF CONSULTATION: Psychology. HISTORY OF PRESENT ILLNESS: The patient is a 73-year-old female who is a resident of [facility] in [place]. The following is by review of the medical record and by patient's self report. The patient is being admitted due to increased agitation and screaming and yelling behavior that was unable to be contained. According to record review, the staff at the patient's facility report that there were increased yelling episodes and difficulty behaviorally managing and redirecting the patient. The patient presents as irritable and easily agitated. The patient stated that she is in pain and needs a doctor to see her right away. The patient denied any suicidal ideation, plan or intention. PAST MEDICAL HISTORY: Please see history and physical by Dr. Allen. PAST PSYCHIATRIC HISTORY: Records are unavailable. SUBSTANCE ABUSE HISTORY: None. PSYCHOSOCIAL HISTORY: The patient is a resident of [facility]. The patient did not answer questions about occupational history or educational history or adventism affiliation. The patient did not answer questions about physical or sexual abuse or any legal issues at this time. MENTAL STATUS EXAMINATION: The patient appears to be her stated age and appears to be moderately obese. The patient's attitude is superficially cooperative. Eye contact is poor. Mood is irritable. Speech is pressured. The patient had moments of becoming very agitated during the clinical interview. The patient's thought process perseverated on medications and complaints of pain. The patient denied any auditory or visual hallucinations. The patient presents with paranoid ideation. The patient denied any suicidal ideation, plan or intention. The patient's behavior is easily agitated. Impulse control is poor. Concentration is poor. Sensorium is alert and oriented to self and place. She is aware she is in the hospital. The patient did not participate in the memory assessment or participate in the interpretation of proverbs. Immediate short-term and long-term memory seem to be impaired. Insight is poor. Judgment is compromised. DIAGNOSTIC IMPRESSION: AXIS I: 1. Major depressive disorder, recurrent, severe with psychotic symptoms. 2. Dementia with behavioral disturbance. AXIS II: Deferred. AXIS III: As per Dr. Allen. TREATMENT PLAN: The patient has been seen by Dr. Curry for psychiatric evaluation and for management of the patient's psychotropic medications. The patient will be monitored closely and we will provide supportive therapy to include coping strategies for phase of life issues. According to review of record and the delinquency prevention social worker notes, the patient's family is involved with the patient's care and will be contacted. We will provide a simple de-escalation skill as well as motivational enhancement for the patient to become compliant and stay compliant with all aspects for care and treatment. We will provide insight oriented therapy and assist the patient in developing stress management and coping skills to reduce her depression. We will provide reality integration as well. Thank you, Dr. Curry, for this consult and the opportunity to participate with you in this patient's care. JOB# [id number] YAIR
[2018-02-16] MEDS: INSULIN ASPART SLIDING SCALE 100 UNITS/ML UNIT SUBQ SCH ×2 (06:38→17:32)
[2018-02-16] MEDS: Insulin Detemir 100 units/mL 10mL Vial SUBQ SCH (08:23)
[2018-02-16] MEDS: buPROPion XL 150 mg T 24 H PO SCH (08:59)
[2018-02-16] MEDS: Hydroxychloroquine 200 mg Tab PO SCH ×2 (08:59→17:32)
[2018-02-16] MEDS: Aspirin 81mg Chewable Tab PO SCH (08:59)
--- NOTE | 2018-02-16 11:49 | General Progress Note ---
Subjective - Review of Systems Service Date: 02/16/18 Subjective: Confused Objective - Results Result Diagrams: 02/14/18 07:07 02/14/18 07:07 Recent Labs: Laboratory Last Values WBC 6.7 Th/cmm (4.8-10.8) 02/14/18 07:07 RBC 4.08 Mil/cmm (3.80-5.20) 02/14/18 07:07 Hgb 12.3 gm/dL (12-16) 02/14/18 07:07 Hct 36.7 % (41.0-60) L 02/14/18 07:07 MCV 90.1 fl (81-100) 02/14/18 07:07 MCH 30.1 pg (27.0-31.0) 02/14/18 07:07 MCHC Differential 33.4 pg (28.0-36.0) 02/14/18 07:07 RDW 12.2 % (11.5-20.0) 02/14/18 07:07 Plt Count 323 Th/cmm (150-400) 02/14/18 07:07 MPV 7.8 fl 02/14/18 07:07 Neutrophils % 61.7 % (40.0-80.0) 02/14/18 07:07 Lymphocytes % 27.5 % (20.0-50.0) 02/14/18 07:07 Monocytes % 7.0 % (2.0-10.0) 02/14/18 07:07 Eosinophils % 3.0 % (0.0-5.0) 02/14/18 07:07 Basophils % 0.8 % (0.0-2.0) 02/14/18 07:07 Sodium 137 mEq/L (136-145) 02/14/18 07:07 Potassium 4.2 mEq/L (3.5-5.1) 02/14/18 07:07 Chloride 105 mEq/L (98-107) 02/14/18 07:07 Carbon Dioxide 24.9 mEq/L (21.0-31.0) 02/14/18 07:07 Anion Gap 11.3 (7.0-16.0) 02/14/18 07:07 BUN 16 mg/dL (7-25) 02/14/18 07:07 Creatinine 0.5 mg/dL (0.6-1.2) L 02/14/18 07:07 Est GFR ( Amer) TNP 02/14/18 07:07 Est GFR (Non-Af Amer) TNP 02/14/18 07:07 BUN/Creatinine Ratio 32.0 02/14/18 07:07 Glucose 152 mg/dL (70-105) H 02/14/18 07:07 Hemoglobin A1c % 7.4 % (4.0-6.0) H 02/11/18 16:27 Calcium 9.0 mg/dL (8.6-10.3) 02/14/18 07:07 Total Bilirubin 0.4 mg/dL (0.3-1.0) 02/14/18 07:07 AST 13 U/L (13-39) 02/14/18 07:07 ALT 15 U/L (7-52) 02/14/18 07:07 Alkaline Phosphatase 56 U/L (34-104) 02/14/18 07:07 Total Protein 6.2 gm/dL (6.0-8.3) 02/14/18 07:07 Albumin 3.6 gm/dL (3.7-5.3) L 02/14/18 07:07 Globulin 2.6 gm/dL 02/14/18 07:07 Albumin/Globulin Ratio 1.4 (1.0-1.8) 02/14/18 07:07 Triglycerides 252 mg/dL (<150) H 02/11/18 16:27 Cholesterol 178 mg/dL (<200) 02/11/18 16:27 LDL Cholesterol Direct 99 mg/dL (75-193) 02/11/18 16:27 HDL Cholesterol 40 mg/dL (23-92) 02/11/18 16:27 TSH 1.26 uIU/ml (0.34-5.60) 02/11/18 16:27 Salicylates < 25.0 mg/L (30.0-100.0) L 02/11/18 16:27 Acetaminophen < 10.0 ug/mL (10.0-30.0) L 02/11/18 16:27 Ethyl Alcohol < 10 mg/dL (0-10) 02/11/18 16:27 RPR NONREACTIVE (NONREACTIVE) 02/11/18 16:27 - Physical Exam Vitals and I&O: Vital Signs Temp 98.2 F 02/16/18 05:08 Pulse 76 02/16/18 08:58 Resp 20 02/16/18 09:40 BP 119/78 02/16/18 08:58 Pulse Ox 97 02/16/18 05:08 Intake & Output 02/15/18 02/16/18 02/16/18 18:59 06:59 18:59 Intake Total 480 480 Balance 480 480 Weight (lbs) 72.575 kg Intake: Oral 480 480 Other: # Voids 3 2 # Bowel Movements 1 Weight Source Bedscale Active Medications: Current Medications Acetaminophen (Tylenol) 650 mg PO Q4HR PRN PRN Reason: Mild Pain / Temp above 100 Stop: 04/12/18 23:21 Last Admin: 02/13/18 17:47 Dose: 650 mg Acetaminophen/Codeine Phosphate (Tylenol W/Codeine #3) 1 tab PO TID PRN PRN Reason: PAIN Stop: 04/13/18 06:48 Al Hydrox/Mg Hydrox/Simethicone (Maalox) 30 ml PO Q4HR PRN PRN Reason: GI DISTRESS Stop: 04/12/18 23:21 Aripiprazole (Abilify) 5 mg PO DAILY [facility] PRN Reason: Protocol Stop: 04/14/18 08:59 Last Admin: 02/16/18 08:59 Dose: 5 mg Aspirin (Aspirin Chewable) 81 mg PO DAILY [facility] Stop: 04/13/18 08:59 Last Admin: 02/16/18 08:59 Dose: 81 mg Atorvastatin Calcium (Lipitor) 40 mg PO HS [facility] Stop: 04/13/18 20:59 Last Admin: 02/15/18 21:16 Dose: 40 mg Bupropion HCl (Wellbutrin Xl) 150 mg PO DAILY [facility] PRN Reason: Protocol Stop: 04/13/18 08:59 Last Admin: 02/16/18 08:59 Dose: 150 mg Enalapril Maleate (Vasotec) 10 mg PO DAILY [facility] Stop: 04/13/18 08:59 Last Admin: 02/16/18 08:58 Dose: 10 mg Glimepiride (Amaryl) 2 mg PO DAILY [facility] Stop: 04/13/18 08:59 Last Admin: 02/16/18 08:59 Dose: Not Given Hydroxychloroquine Sulfate (Plaquenil) 200 mg PO BID [facility] Stop: 04/13/18 08:59 Last Admin: 02/16/18 08:59 Dose: 200 mg Insulin Aspart (Novolog Insulin Sliding Scale) 0 units SUBQ 0630,1700 [facility]A PRN Reason: Protocol Stop: 04/16/18 16:59 Last Admin: 02/16/18 06:38 Dose: Not Given Insulin Detemir (Levemir Insulin) 5 units SUBQ DAILY [facility] PRN Reason: Protocol Stop: 04/17/18 08:59 Last Admin: 02/16/18 08:23 Dose: Not Given Lorazepam (Ativan) 0.5 mg PO Q4HR PRN; Protocol PRN Reason: Anxiety Stop: 03/13/18 23:21 Last Admin: 02/16/18 00:28 Dose: 0.5 mg Magnesium Hydroxide (Milk Of Magnesia) 30 ml PO HS PRN PRN Reason: Constipation Metformin HCl (Glucophage) 500 mg PO BIDWM [facility] Stop: 04/13/18 07:59 Last Admin: 02/16/18 08:59 Dose: 500 mg Zolpidem Tartrate (Ambien) 5 mg PO HS PRN PRN Reason: Insomnia Stop: 04/12/18 23:21 Last Admin: 02/15/18 21:17 Dose: 5 mg General: Alert, Other (Confused) HEENT: Atraumatic Neck: Supple Cardiovascular: Regular rate Lungs: Clear to auscultation Abdomen: Bowel sounds Extremities: Other (No edema) Neurological: Other (Unstable gait) Skin: Other (Warm and dry) Psych/Mental Status: Other (Confused not oriented) Assessment/Plan - Problem List Patient Problems: All Active Problems INCREASED CONFUSION AND POOR ADLS (Acute) - Assessment Assessment: Current Active Problems Problem Status Onset INCREASED CONFUSION AND POOR ADLS Acute Patient is awake, resting in bed, confused, not oriented. Dx: Increased in agitation, DM, HTN, CAD, CHF. - Plan Plan: Patient under Psychiatric care, will continue with SNF meds. Will continue to monitor. Nutritional Asmnt/Malnutr-PDOC - Dietary Evaluation Malnutrition Findings (Please click <Entered> for more info): Nutritional Asmnt/Malnutrition Start: 02/14/18 15: 07 Text: Status: Complete Freq: Document 02/14/18 15:07 YULIANA (Rec: 02/14/18 15:18 TESSAG [email or web address]) Nutritional Asmnt/Malnutrition Patient General Information Nutritional Screening High Risk Diagnosis psychosis Pertinent Medical Hx/Surgical Hx CAD, CHF, HTN, old [place], DM Subjective Information Pt seen lying in bed at time of visit, very confused, not able to communicate. Per EMR, PO intake 50-100%, 100% x 3 meals yesterday 02/13. Pt blood sugar 263 at admission and pt refused insulin noted. Current Diet Order/ Nutrition Support [facility] 45, [facility] soft ground Pertinent Medications novolog, levemir, glucophage Pertinent Labs 02/11 na 135, K 5.2, glucose 263 , A1c 7.4 02/14 Cr 0.5, glucose 152, Alb 3 .6 Nutritional Hx/Data Height 1.63 m Height (Calculated Centimeters) 162.6 Current Weight (lbs) 72.575 kg Weight (Calculated Kilograms) 72.6 Weight (Calculated Grams) 18060.8 [place] Body Weight 120 Body Mass Index (BMI) 27.4 Weight Status Overweight GI Symptoms GI Symptoms None Last BM 0 Difficult in: None Skin Integrity/Comment: intact, sherron 15 Current %PO Good (75-100%) Estimated Nutritional Goals BEE in Kcals: Adj wt of IBW Calories/Kcals/Kg 25-30 Kcals Calculated 3044-8914 Protein: Adj wt of IBW Protein g/k-1.2 Protein Calculated 59-71 Fluid: ml 1475-1770ml (1ml/kcal) Nutritional Problem 1. Problem Problem altered nutrition related lab values Etiology hx of DM Signs/Symptoms: glucose 152-263, A1c 7.4 Malnutrition Alert Protein-Calorie Malnutrition N/A Is there a minimum of two criteria No selected? Query Text:Check all the applicable criteria. A minimum of two criteria are recommended for diagnosis of either severe or non-severe malnutrition. Intervention/Recommendation Comments 1. Continue with [facility] 45 diet as ordered. Continue monitor blood sugar/POC. 2. Monitor PO intake, wt, labs and skin integrity 3. F/U as moderate risk in 3-5 days, 02/17-02/19 Expected Outcomes/Goals Expected Outcomes/Goals 1. PO intake to meet at least 75% of nutritional needs. 2. Wt stability, skin to remain intact, labs to approach WNL.
--- NOTE | 2018-02-16 17:18 | Progress Notes ---
DATE: 02/16/2018 PSYCHIATRIC PROGRESS NOTE SUBJECTIVE: Staff was spoken to. The patient is interviewed. Mood is noted to be irritable. The patient is constantly asking for the doctor to come and then check her out. The patient's coping skills are noted to be poor. The patient is somatically preoccupied. Insight and judgment are very much impaired. Impulse control seems to be limited. ASSESSMENT: The patient is still depressed. PLAN: To continue the patient with the supportive therapy and followup. JOB# [id number]
[2018-02-17] MEDS: INSULIN ASPART SLIDING SCALE 100 UNITS/ML UNIT SUBQ SCH ×2 (06:40→17:16)
[2018-02-17] MEDS: Hydroxychloroquine 200 mg Tab PO SCH ×2 (08:40→16:59)
[2018-02-17] MEDS: buPROPion XL 150 mg T 24 H PO SCH (08:40)
--- NOTE | 2018-02-17 08:49 | General Progress Note ---
Subjective - Review of Systems Service Date: 02/17/18 Subjective: Confused Objective - Results Result Diagrams: 02/14/18 07:07 02/14/18 07:07 Recent Labs: Laboratory Last Values WBC 6.7 Th/cmm (4.8-10.8) 02/14/18 07:07 RBC 4.08 Mil/cmm (3.80-5.20) 02/14/18 07:07 Hgb 12.3 gm/dL (12-16) 02/14/18 07:07 Hct 36.7 % (41.0-60) L 02/14/18 07:07 MCV 90.1 fl (81-100) 02/14/18 07:07 MCH 30.1 pg (27.0-31.0) 02/14/18 07:07 MCHC Differential 33.4 pg (28.0-36.0) 02/14/18 07:07 RDW 12.2 % (11.5-20.0) 02/14/18 07:07 Plt Count 323 Th/cmm (150-400) 02/14/18 07:07 MPV 7.8 fl 02/14/18 07:07 Neutrophils % 61.7 % (40.0-80.0) 02/14/18 07:07 Lymphocytes % 27.5 % (20.0-50.0) 02/14/18 07:07 Monocytes % 7.0 % (2.0-10.0) 02/14/18 07:07 Eosinophils % 3.0 % (0.0-5.0) 02/14/18 07:07 Basophils % 0.8 % (0.0-2.0) 02/14/18 07:07 Sodium 137 mEq/L (136-145) 02/14/18 07:07 Potassium 4.2 mEq/L (3.5-5.1) 02/14/18 07:07 Chloride 105 mEq/L (98-107) 02/14/18 07:07 Carbon Dioxide 24.9 mEq/L (21.0-31.0) 02/14/18 07:07 Anion Gap 11.3 (7.0-16.0) 02/14/18 07:07 BUN 16 mg/dL (7-25) 02/14/18 07:07 Creatinine 0.5 mg/dL (0.6-1.2) L 02/14/18 07:07 Est GFR ( Amer) TNP 02/14/18 07:07 Est GFR (Non-Af Amer) TNP 02/14/18 07:07 BUN/Creatinine Ratio 32.0 02/14/18 07:07 Glucose 152 mg/dL (70-105) H 02/14/18 07:07 Hemoglobin A1c % 7.4 % (4.0-6.0) H 02/11/18 16:27 Calcium 9.0 mg/dL (8.6-10.3) 02/14/18 07:07 Total Bilirubin 0.4 mg/dL (0.3-1.0) 02/14/18 07:07 AST 13 U/L (13-39) 02/14/18 07:07 ALT 15 U/L (7-52) 02/14/18 07:07 Alkaline Phosphatase 56 U/L (34-104) 02/14/18 07:07 Total Protein 6.2 gm/dL (6.0-8.3) 02/14/18 07:07 Albumin 3.6 gm/dL (3.7-5.3) L 02/14/18 07:07 Globulin 2.6 gm/dL 02/14/18 07:07 Albumin/Globulin Ratio 1.4 (1.0-1.8) 02/14/18 07:07 Triglycerides 252 mg/dL (<150) H 02/11/18 16:27 Cholesterol 178 mg/dL (<200) 02/11/18 16:27 LDL Cholesterol Direct 99 mg/dL (75-193) 02/11/18 16:27 HDL Cholesterol 40 mg/dL (23-92) 02/11/18 16:27 TSH 1.26 uIU/ml (0.34-5.60) 02/11/18 16:27 Salicylates < 25.0 mg/L (30.0-100.0) L 02/11/18 16:27 Acetaminophen < 10.0 ug/mL (10.0-30.0) L 02/11/18 16:27 Ethyl Alcohol < 10 mg/dL (0-10) 02/11/18 16:27 RPR NONREACTIVE (NONREACTIVE) 02/11/18 16:27 - Physical Exam Vitals and I&O: Vital Signs Temp 97.8 F 02/17/18 05:16 Pulse 72 02/17/18 08:40 Resp 18 02/17/18 05:16 BP 123/64 02/17/18 08:40 Pulse Ox 97 02/17/18 05:16 Intake & Output 02/16/18 02/17/18 02/17/18 18:59 06:59 18:59 Intake Total 520 480 Balance 520 480 Intake: Oral 520 480 Other: # Voids 2 2 Active Medications: Current Medications Acetaminophen (Tylenol) 650 mg PO Q4HR PRN PRN Reason: Mild Pain / Temp above 100 Stop: 04/12/18 23:21 Last Admin: 02/13/18 17:47 Dose: 650 mg Acetaminophen/Codeine Phosphate (Tylenol W/Codeine #3) 1 tab PO TID PRN PRN Reason: PAIN Stop: 04/13/18 06:48 Al Hydrox/Mg Hydrox/Simethicone (Maalox) 30 ml PO Q4HR PRN PRN Reason: GI DISTRESS Stop: 04/12/18 23:21 Aripiprazole (Abilify) 5 mg PO DAILY URSZULA PRN Reason: Protocol Stop: 04/14/18 08:59 Last Admin: 02/16/18 08:59 Dose: 5 mg Aspirin (Aspirin Chewable) 81 mg PO DAILY URSZULA Stop: 04/13/18 08:59 Last Admin: 02/16/18 08:59 Dose: 81 mg Atorvastatin Calcium (Lipitor) 40 mg PO HS [facility] Stop: 04/13/18 20:59 Last Admin: 02/16/18 21:52 Dose: 40 mg Bupropion HCl (Wellbutrin Xl) 150 mg PO DAILY URSZULA PRN Reason: Protocol Stop: 04/13/18 08:59 Last Admin: 02/17/18 08:40 Dose: 150 mg Enalapril Maleate (Vasotec) 10 mg PO DAILY [facility] Stop: 04/13/18 08:59 Last Admin: 02/17/18 08:40 Dose: 10 mg Hydroxychloroquine Sulfate (Plaquenil) 200 mg PO BID [facility] Stop: 04/13/18 08:59 Last Admin: 02/17/18 08:40 Dose: 200 mg Insulin Aspart (Novolog Insulin Sliding Scale) 0 units SUBQ 0630,1700 URSZULA PRN Reason: Protocol Stop: 04/16/18 16:59 Last Admin: 02/17/18 06:40 Dose: Not Given Insulin Detemir (Levemir Insulin) 5 units SUBQ DAILY URSZULA PRN Reason: Protocol Stop: 04/17/18 08:59 Last Admin: 02/16/18 08:23 Dose: Not Given Lorazepam (Ativan) 0.5 mg PO Q4HR PRN; Protocol PRN Reason: Anxiety Stop: 03/13/18 23:21 Last Admin: 02/16/18 00:28 Dose: 0.5 mg Magnesium Hydroxide (Milk Of Magnesia) 30 ml PO HS PRN PRN Reason: Constipation Metformin HCl (Glucophage) 500 mg PO BIDWM [facility]ZUL[facility] Stop: 04/13/18 07:59 Last Admin: 02/17/18 08:41 Dose: 500 mg Zolpidem Tartrate (Ambien) 5 mg PO HS PRN PRN Reason: Insomnia Stop: 04/12/18 23:21 Last Admin: 02/16/18 21:52 Dose: 5 mg General: Alert, Other (Confused) HEENT: Atraumatic Neck: Supple Cardiovascular: Regular rate Lungs: Clear to auscultation Abdomen: Bowel sounds Extremities: Other (No edema) Neurological: Other (Unstable gait) Skin: Other (Warm and dry) Psych/Mental Status: Other (Confused not oriented) Assessment/Plan - Problem List Patient Problems: All Active Problems INCREASED CONFUSION AND POOR ADLS (Acute) - Assessment Assessment: Current Active Problems Problem Status Onset INCREASED CONFUSION AND POOR ADLS Acute Patient is awake, resting in bed, confused, not oriented. Dx: Increased in agitation, DM, HTN, CAD, CHF. - Plan Plan: Patient under Psychiatric care, will continue with SNF meds. Will continue to monitor. Nutritional Asmnt/Malnutr-PDOC - Dietary Evaluation Malnutrition Findings (Please click <Entered> for more info): Nutritional Asmnt/Malnutrition Start: 02/14/18 15: 07 Text: Status: Complete Freq: Document 02/14/18 15:07 ARIANNAG (Rec: 02/14/18 15:18 ARIANNA [id number]) Nutritional Asmnt/Malnutrition Patient General Information Nutritional Screening High Risk Diagnosis psychosis Pertinent Medical Hx/Surgical Hx CAD, CHF, HTN, old [place], DM Subjective Information Pt seen lying in bed at time of visit, very confused, not able to communicate. Per EMR, PO intake 50-100%, 100% x 3 meals yesterday 02/13. Pt blood sugar 263 at admission and pt refused insulin noted. Current Diet Order/ Nutrition Support [facility] 45gm, [facility] soft ground Pertinent Medications novolog, levemir, glucophage Pertinent Labs 02/11 na 135, K 5.2, glucose 263 , A1c 7.4 02/14 Cr 0.5, glucose 152, Alb 3 .6 Nutritional Hx/Data Height 1.63 m Height (Calculated Centimeters) 162.6 Current Weight (lbs) 72.575 kg Weight (Calculated Kilograms) 72.6 Weight (Calculated Grams) 37112.8 [place] Body Weight 120 Body Mass Index (BMI) 27.4 Weight Status Overweight GI Symptoms GI Symptoms None Last BM 0 Difficult in: None Skin Integrity/Comment: intact, sherron 15 Current %PO Good (75-100%) Estimated Nutritional Goals BEE in Kcals: Adj wt of IBW Calories/Kcals/Kg 25-30 Kcals Calculated 9614-2056 Protein: Adj wt of IBW Protein g/k-1.2 Protein Calculated 59-71 Fluid: ml 1475-1770ml (1ml/kcal) Nutritional Problem 1. Problem Problem altered nutrition related lab values Etiology hx of DM Signs/Symptoms: glucose 152-263, A1c 7.4 Malnutrition Alert Protein-Calorie Malnutrition N/A Is there a minimum of two criteria No selected? Query Text:Check all the applicable criteria. A minimum of two criteria are recommended for diagnosis of either severe or non-severe malnutrition. Intervention/Recommendation Comments 1. Continue with [facility] 45 diet as ordered. Continue monitor blood sugar/POC. 2. Monitor PO intake, wt, labs and skin integrity 3. F/U as moderate risk in 3-5 days, 02/17-02/19 Expected Outcomes/Goals Expected Outcomes/Goals 1. PO intake to meet at least 75% of nutritional needs. 2. Wt stability, skin to remain intact, labs to approach WNL.
[2018-02-17] MEDS: Aspirin 81mg Chewable Tab PO SCH (09:10)
[2018-02-17] MEDS: Insulin Detemir 100 units/mL 10mL Vial SUBQ SCH (09:34)
--- NOTE | 2018-02-18 02:06 | Progress Notes ---
DATE: 02/17/2018 PSYCHIATRIC PROGRESS NOTE TIME PATIENT SEEN: Staff was spoken to. The patient is interviewed. Mood is noted to be depressed. Affect is constricted. The patient's insight and judgment are noted to be still impaired. Impulse control is still noted to be poor. Coping skills are also noted to be poor. The patient has been having difficult time to cope with the stress. The patient is on Wellbutrin and has been able to tolerate the medication. ASSESSMENT: The patient is still depressed and paranoid. PLAN: To continue the patient with the supportive therapy and follow up. JOB# [id number]
[2018-02-18] MEDS: INSULIN ASPART SLIDING SCALE 100 UNITS/ML UNIT SUBQ SCH (07:23)
--- NOTE | 2018-02-18 08:39 | General Progress Note ---
Subjective - Review of Systems Service Date: 02/18/18 Subjective: I want go home. Objective - Results Result Diagrams: 02/14/18 07:07 02/14/18 07:07 Recent Labs: Laboratory Last Values WBC 6.7 Th/cmm (4.8-10.8) 02/14/18 07:07 RBC 4.08 Mil/cmm (3.80-5.20) 02/14/18 07:07 Hgb 12.3 gm/dL (12-16) 02/14/18 07:07 Hct 36.7 % (41.0-60) L 02/14/18 07:07 MCV 90.1 fl (81-100) 02/14/18 07:07 MCH 30.1 pg (27.0-31.0) 02/14/18 07:07 MCHC Differential 33.4 pg (28.0-36.0) 02/14/18 07:07 RDW 12.2 % (11.5-20.0) 02/14/18 07:07 Plt Count 323 Th/cmm (150-400) 02/14/18 07:07 MPV 7.8 fl 02/14/18 07:07 Neutrophils % 61.7 % (40.0-80.0) 02/14/18 07:07 Lymphocytes % 27.5 % (20.0-50.0) 02/14/18 07:07 Monocytes % 7.0 % (2.0-10.0) 02/14/18 07:07 Eosinophils % 3.0 % (0.0-5.0) 02/14/18 07:07 Basophils % 0.8 % (0.0-2.0) 02/14/18 07:07 Sodium 137 mEq/L (136-145) 02/14/18 07:07 Potassium 4.2 mEq/L (3.5-5.1) 02/14/18 07:07 Chloride 105 mEq/L (98-107) 02/14/18 07:07 Carbon Dioxide 24.9 mEq/L (21.0-31.0) 02/14/18 07:07 Anion Gap 11.3 (7.0-16.0) 02/14/18 07:07 BUN 16 mg/dL (7-25) 02/14/18 07:07 Creatinine 0.5 mg/dL (0.6-1.2) L 02/14/18 07:07 Est GFR ( Amer) TNP 02/14/18 07:07 Est GFR (Non-Af Amer) TNP 02/14/18 07:07 BUN/Creatinine Ratio 32.0 02/14/18 07:07 Glucose 152 mg/dL (70-105) H 02/14/18 07:07 Hemoglobin A1c % 7.4 % (4.0-6.0) H 02/11/18 16:27 Calcium 9.0 mg/dL (8.6-10.3) 02/14/18 07:07 Total Bilirubin 0.4 mg/dL (0.3-1.0) 02/14/18 07:07 AST 13 U/L (13-39) 02/14/18 07:07 ALT 15 U/L (7-52) 02/14/18 07:07 Alkaline Phosphatase 56 U/L (34-104) 02/14/18 07:07 Total Protein 6.2 gm/dL (6.0-8.3) 02/14/18 07:07 Albumin 3.6 gm/dL (3.7-5.3) L 02/14/18 07:07 Globulin 2.6 gm/dL 02/14/18 07:07 Albumin/Globulin Ratio 1.4 (1.0-1.8) 02/14/18 07:07 Triglycerides 252 mg/dL (<150) H 02/11/18 16:27 Cholesterol 178 mg/dL (<200) 02/11/18 16:27 LDL Cholesterol Direct 99 mg/dL (75-193) 02/11/18 16:27 HDL Cholesterol 40 mg/dL (23-92) 02/11/18 16:27 TSH 1.26 uIU/ml (0.34-5.60) 02/11/18 16:27 Salicylates < 25.0 mg/L (30.0-100.0) L 02/11/18 16:27 Acetaminophen < 10.0 ug/mL (10.0-30.0) L 02/11/18 16:27 Ethyl Alcohol < 10 mg/dL (0-10) 02/11/18 16:27 RPR NONREACTIVE (NONREACTIVE) 02/11/18 16:27 - Physical Exam Vitals and I&O: Vital Signs Temp 97.3 F 02/17/18 20:00 Pulse 67 02/17/18 20:00 Resp 18 02/17/18 20:00 BP 126/65 02/17/18 20:00 Pulse Ox 96 02/17/18 20:00 Intake & Output 02/17/18 02/18/18 02/18/18 18:59 06:59 18:59 Intake Total 1200 Balance 1200 Intake: Oral 1200 Other: # Voids 3 Active Medications: Current Medications Acetaminophen (Tylenol) 650 mg PO Q4HR PRN PRN Reason: Mild Pain / Temp above 100 Stop: 04/12/18 23:21 Last Admin: 02/13/18 17:47 Dose: 650 mg Acetaminophen/Codeine Phosphate (Tylenol W/Codeine #3) 1 tab PO TID PRN PRN Reason: PAIN Stop: 04/13/18 06:48 Al Hydrox/Mg Hydrox/Simethicone (Maalox) 30 ml PO Q4HR PRN PRN Reason: GI DISTRESS Stop: 04/12/18 23:21 Aripiprazole (Abilify) 5 mg PO DAILY URSZULA PRN Reason: Protocol Stop: 04/14/18 08:59 Last Admin: 02/17/18 09:10 Dose: 5 mg Aspirin (Aspirin Chewable) 81 mg PO DAILY U[facility]ZUL[facility] Stop: 04/13/18 08:59 Last Admin: 02/17/18 09:10 Dose: 81 mg Atorvastatin Calcium (Lipitor) 40 mg PO HS [facility] Stop: 04/13/18 20:59 Last Admin: 02/17/18 21:20 Dose: 40 mg Bupropion HCl (Wellbutrin Xl) 150 mg PO DAILY URSZULA PRN Reason: Protocol Stop: 04/13/18 08:59 Last Admin: 02/17/18 08:40 Dose: 150 mg Enalapril Maleate (Vasotec) 10 mg PO DAILY U[facility] Stop: 04/13/18 08:59 Last Admin: 02/17/18 08:40 Dose: 10 mg Hydroxychloroquine Sulfate (Plaquenil) 200 mg PO BID [facility] Stop: 04/13/18 08:59 Last Admin: 02/17/18 16:59 Dose: 200 mg Insulin Aspart (Novolog Insulin Sliding Scale) 0 units SUBQ 0630,1700 URSZULA PRN Reason: Protocol Stop: 04/16/18 16:59 Last Admin: 02/18/18 07:23 Dose: Not Given Insulin Detemir (Levemir Insulin) 5 units SUBQ DAILY URSZULA PRN Reason: Protocol Stop: 04/17/18 08:59 Last Admin: 02/17/18 09:34 Dose: 5 ud Lorazepam (Ativan) 0.5 mg PO Q4HR PRN; Protocol PRN Reason: Anxiety Stop: 03/13/18 23:21 Last Admin: 02/16/18 00:28 Dose: 0.5 mg Magnesium Hydroxide (Milk Of Magnesia) 30 ml PO HS PRN PRN Reason: Constipation Metformin HCl (Glucophage) 500 mg PO BIDWM URSZULA Stop: 04/13/18 07:59 Last Admin: 02/17/18 18:00 Dose: Not Given Zolpidem Tartrate (Ambien) 5 mg PO HS PRN PRN Reason: Insomnia Stop: 04/12/18 23:21 Last Admin: 02/17/18 21:20 Dose: 5 mg General: Alert, Other (Confused) HEENT: Atraumatic Neck: Supple Cardiovascular: Regular rate Lungs: Clear to auscultation Abdomen: Bowel sounds Extremities: Other (No edema) Neurological: Other (Unstable gait) Skin: Other (Warm and dry) Psych/Mental Status: Other (Confused not oriented) Assessment/Plan - Problem List Patient Problems: All Active Problems INCREASED CONFUSION AND POOR ADLS (Acute) - Assessment Assessment: Current Active Problems Problem Status Onset INCREASED CONFUSION AND POOR ADLS Acute Patient is awake, resting in bed, confused, not oriented. Dx: Increased in agitation, DM, HTN, CAD, CHF. - Plan Plan: Patient under Psychiatric care, will continue with SNF meds. Will continue to monitor. Nutritional Asmnt/Malnutr-PDOC - Dietary Evaluation Malnutrition Findings (Please click <Entered> for more info): Nutritional Asmnt/Malnutrition Start: 02/14/18 15: 07 Text: Status: Complete Freq: Document 02/14/18 15:07 ARIANNAG (Rec: 02/14/18 15:18 ARIANNA [id number]) Nutritional Asmnt/Malnutrition Patient General Information Nutritional Screening High Risk Diagnosis psychosis Pertinent Medical Hx/Surgical Hx CAD, CHF, HTN, old [place], DM Subjective Information Pt seen lying in bed at time of visit, very confused, not able to communicate. Per EMR, PO intake 50-100%, 100% x 3 meals yesterday 02/13. Pt blood sugar 263 at admission and pt refused insulin noted. Current Diet Order/ Nutrition Support [facility] 45gm, [facility] soft ground Pertinent Medications novolog, levemir, glucophage Pertinent Labs 02/11 na 135, K 5.2, glucose 263 , A1c 7.4 02/14 Cr 0.5, glucose 152, Alb 3 .6 Nutritional Hx/Data Height 1.63 m Height (Calculated Centimeters) 162.6 Current Weight (lbs) 72.575 kg Weight (Calculated Kilograms) 72.6 Weight (Calculated Grams) 25374.8 [place] Body Weight 120 Body Mass Index (BMI) 27.4 Weight Status Overweight GI Symptoms GI Symptoms None Last BM 0 Difficult in: None Skin Integrity/Comment: intact, sherron 15 Current %PO Good (75-100%) Estimated Nutritional Goals BEE in Kcals: Adj wt of IBW Calories/Kcals/Kg 25-30 Kcals Calculated 7466-4721 Protein: Adj wt of IBW Protein g/k-1.2 Protein Calculated 59-71 Fluid: ml 1475-1770ml (1ml/kcal) Nutritional Problem 1. Problem Problem altered nutrition related lab values Etiology hx of DM Signs/Symptoms: glucose 152-263, A1c 7.4 Malnutrition Alert Protein-Calorie Malnutrition N/A Is there a minimum of two criteria No selected? Query Text:Check all the applicable criteria. A minimum of two criteria are recommended for diagnosis of either severe or non-severe malnutrition. Intervention/Recommendation Comments 1. Continue with [facility] 45 diet as ordered. Continue monitor blood sugar/POC. 2. Monitor PO intake, wt, labs and skin integrity 3. F/U as moderate risk in 3-5 days, 02/17-02/19 Expected Outcomes/Goals Expected Outcomes/Goals 1. PO intake to meet at least 75% of nutritional needs. 2. Wt stability, skin to remain intact, labs to approach WNL.
[2018-02-18] MEDS: buPROPion XL 150 mg T 24 H PO SCH (09:03)
[2018-02-18] MEDS: Hydroxychloroquine 200 mg Tab PO SCH (09:03)
[2018-02-18] MEDS: Insulin Detemir 100 units/mL 10mL Vial SUBQ SCH (09:04)
[2018-02-18] MEDS: Aspirin 81mg Chewable Tab PO SCH (09:04)
--- NOTE | 2018-02-18 21:30 | Progress Notes ---
DATE: 02/18/2018 SUBJECTIVE: Staff was spoken to. The patient is interviewed. Mood is noted to be anxious. Affect is appropriate. The patient's insight and judgment at this time are noted to be improving. Impulse control seems to be limited. The patient is mentally preoccupied and has been constantly talking for the medical doctor to come and then see it because she has been having pain in the right upper extremity. Coping skills are noted to be poor. The patient continues to be paranoid. The patient has been on Abilify 5 mg. The patient has been on the bupropion. The patient has been able to tolerate. PLAN: In view of the patient's problems with the pain constantly, it is decided to discontinue the Wellbutrin and then start the patient with Cymbalta, which is going to be given at 30 mg and the patient is going to be followed up with the supportive therapy. JOB# [id number]
== END 2018-02-18 12:15 | DRG 885 ==
LOC: ER 16:00 → GERO2 18:30
PROVIDERS: ADMIT Psychiatry & Neurology Psychiatry; ATTEND Psychiatry & Neurology Psychiatry
DX: F33.3 Major depressive disorder, recurrent, severe with psychotic symptoms (principal); I11.0 Hypertensive heart disease with heart failure; F03.91 Unspecified dementia, unspecified severity, with behavioral disturbance; E11.9 Type 2 diabetes mellitus without complications; R45.87 Impulsiveness; F41.9 Anxiety disorder, unspecified; I25.10 Atherosclerotic heart disease of native coronary artery without angina pectoris; I50.9 Heart failure, unspecified; I25.2 Old myocardial infarction; Z79.899 Other long term (current) drug therapy; Z79.4 Long term (current) use of insulin
CPT/HCPCS: 36415-UA; 80053-TC; 80061-TC; 80320-TC; 80329-TC; 83036-90; 84443-TC; 85025-TC; 86592-TC; 93005; J1815; Z7610

== ENCOUNTER 2018-12-05 12:27 | Inpatient (IN) | payer MEDICARE, OTHER ==
[2018-12-05 12:54] LABS: % BASOPHILS 0.6 % (0.0-2.0); % LYMPHOCYTES 21.1 % (20.0-50.0); % MONOCYTES 6.6 % (2.0-10.0); % NEUTROPHILS 67.7 % (40.0-80.0); BASOPHILE ABSOLUTE 0.1 Th/cumm (0-0.2); EOSINOPHILE ABSOLUTE 0.4 Th/cmm (0.1-0.4); HEMATOCRIT 37.8 % (41.0-60); HEMOGLOBIN 12.6 gm/dL (12-16); LYMPHOCYTE ABSOLUTE 2.2 Th/cmm (1.5-3.0); MEAN CELL VOLUME 91.9 fl (81-100); MEAN CORPUSCULAR HEMOGLOBIN 30.5 pg (27.0-31.0); MEAN CORPUSCULAR HGB CONC 33.2 pg (28.0-36.0); MEAN PLATELET VOLUME 8.2 fl; MONOCYTE ABSOLUTE 0.7 Th/cmm (0.3-1.0); PLATELET COUNT 328 Th/cmm (150-400); RED BLOOD COUNT 4.11 Mil/cmm (3.80-5.20); RED CELL DISTRIBUTION WIDTH 12.9 % (11.5-20.0); WHITE BLOOD COUNT 10.4 Th/cmm (4.8-10.8)
[2018-12-05 13:04] LABS: INR 1.3 (0.5-1.4); PROTHROMBIN TIME (TEST) 13.3 SECONDS (9.5-11.5)
[2018-12-05 13:10] LABS: ALB/GLOB RATIO 1.6 (1.0-1.8); ALBUMIN 3.6 gm/dL (3.7-5.3); ALKALINE PHOSPHATASE 57 U/L (34-104); BILIRUBIN,TOTAL 0.3 mg/dL (0.3-1.0); BUN - UREA NITROGEN 28 mg/dL (7-25); CALCIUM SERUM 8.5 mg/dL (8.6-10.3); CARBON DIOXIDE 18.3 mEq/L (21.0-31.0); CHLORIDE 110 mEq/L (98-107); CREATININE - SERUM 0.8 mg/dL (0.6-1.2); GLUCOSE 291 mg/dL (70-105); POTASSIUM SERUM 4.3 mEq/L (3.5-5.1); SGOT 11 U/L (13-39); SGPT/ALT 10 U/L (7-52); SODIUM SERUM 138 mEq/L (136-145); TOTAL PROTEIN,SERUM 5.9 gm/dL (6.0-8.3)
--- NOTE | 2018-12-05 13:19 | ED Physician Chart ---
ED Chief Complaint/HPI - Patient Information Date Seen:: 12/05/18 Time Seen:: 13:13 Chief Complaint:: psychosis History of Present Illness:: this is a 73 yo female sent here for evaluation and placement in the geropsych unit Allergies:: Allergies Allergy/AdvReac Type Severity Reaction Status Date / Time No Known Allergies Allergy Verified 02/11/18 16:09 Vitals:: Vital Signs - 8 hr 12/05/18 13:05 Temp 98.4 F HR 60 RR 20 BP 116/35 O2 Sat % 98 Historian:: Medical Records Review:: Nurse's Note Reviewed, Old Chart Reviewed, Transfer documents Reviewed ED Review of Systems - Review of Systems General/Constitutional: No fever, No chills, No weight loss, No weakness, No diaphoresis, No edema, No loss of appetite, Other (the patient is unable to give a review of systems) Skin: No skin lesions, No rash, No bruising Head: No headache, No light-headedness Eyes: No loss of vision, No pain, No diplopia ENT: No earache, No nasal drainage, No sore throat, No tinnitus Neck: No neck pain, No swelling, No thyromegaly, No stiffness, No mass noted Cardio Vascular: No chest pain, No palpitations, No PND, No orthopnea, No edema Pulmonary: No SOB, No cough, No sputum, No wheezing GI: No nausea, No vomiting, No diarrhea, No pain, No melena, No hematochezia, No constipation, No hematemesis G/U: No dysuria, No frequency, No hematuria Musculoskeletal: No bone or joint pain, No back pain, No muscle pain Endocrine: No polyuria, No polydipsia Psychiatric: No prior psych history, No depression, No anxiety, No suicidal ideation Hematopoietic: No bruising, No lymphadenopathy Allergic/Immuno: No urticaria, No angioedema Neurological: No syncope, No focal symptoms, No weakness, No paresthesia, No headache, No seizure, No dizziness, No confusion, No vertigo ED Past Medical History - Past Medical History Obtainable: Yes Past Medical History: DM, CVA/TIA, Seizures, Dementia Family History: None Social History: Non Smoker, No Alcohol, No Drug Use, Care Facility Surgical History: None Psychiatricy History: Depression, Schizophrenia, Dementia Medication: Reviewed Family Medical History - Family Member Mother History Unknown: Yes Ethnicity: Unknown Living Status: Unknown Hx Family Cancer: (Unknown) Hx Family Coronary Artery Disease: (Unknown) Hx Family Congestive Heart Failure: (Unknown) Hx Family Hypertension: Yes Hx Family Stroke: (Unknown) Hx Family Diabetes: (Unknown) Hx Family Seizures: (Unknown) Hx Family Dementia: (Unknown) Hx Family AIDS: (Unknown) Hx Family COPD: (Unknown) Hx Family Hepatitis: (Unknown) Hx Family Psychiatric Problems: (Unknown) Hx Family Tuberculosis: (Unknown) ED Physical Exam - Physical Examination General/Constitutional: Awake, Well-developed, well-nourished, Alert, No distress, GCS 15, Non-toxic appearing, Ambulatory Other Gen/Cons comments:: screaming at times Head: Atraumatic Eyes: Lids, conjuctiva normal, PERRL, EOMI Skin: Nl inspection, No rash, No skin lesions, No ecchymosis, Well hydrated, No lymphadenopathy ENMT: External ears, nose nl, Nasal exam nl, Lips, teeth, gums nl Neck: Nontender, Full ROM w/o pain, No JVD, No nuchal rigidity, No bruit, No mass, No stridor Respiratory: Nl effort/Exclusion, Clear to Auscultation, No Wheeze/Rhonchi/Rales Cardio Vascular: RRR, No murmur, gallop, rubs, NL S1 S2 GI: No tenderness/rebounding/guarding, No organomegaly, No hernia, Normal BS's, Nondistended, No mass/bruits, No McBurney tenderness : No CVA tenderness Extremities: No tenderness or effusion, Full ROM, normal strength in all extremities, No edema, Normal digits & nails Neuro/Psych: Alert/oriented, DTR's symmetric, Normal sensory exam, Normal motor strength, Judgement/insight normal, Mood normal, Normal gait, No focal deficits Misc: Normal back, No paraspinal tenderness ED Labs/Radiology/EKG Results - Lab Results Results: Laboratory Tests 12/05/18 12:44 WBC 10.4 RBC 4.11 Hgb 12.6 Hct 37.8 L MCV 91.9 MCH 30.5 MCHC Differential 33.2 RDW 12.9 Plt Count 328 MPV 8.2 Neutrophils % 67.7 Lymphocytes % 21.1 Monocytes % 6.6 Eosinophils % 4.0 Basophils % 0.6 ED Assessment - Assessment General Assessment: psychosis ED Septic Shock - . Is Septic Shock (SBP<90, OR Lactate>4 mmol\L) present?: No - <6hrs of presentation: Vital Signs: Vital Signs - 8 hr 12/05/18 13:05 Temp 98.4 F HR 60 RR 20 BP 116/35 O2 Sat % 98 ED Reassessment (Disposition) - Diagnosis Diagnosis:: psychosis diabetes mellitus - Patient Disposition Discharge/Transfer:: Acute Care w/in this hosp Admitting Medical Physician:: Saulo Allen Admitting Psych Physician:: Loida Curry Condition at Disposition:: Unchanged
--- NOTE | 2018-12-05 13:34 | Diagnostic Imaging Report ---
Chest x-ray single view History: Pain The heart size is normal. No focal pulmonary parenchymal processes. No hilar or mediastinal abnormalities. Atherosclerotic calcification seen in the region of the carotid arteries. Impression: 1. No acute abnormalities 2. Atherosclerotic vascular changes
[2018-12-05] MEDS ORDERED: Sodium Chloride 0.45% 1,000 ML IV ONE (13:48)
[2018-12-05 17:33] VITALS: BP 124/62
[2018-12-05] MEDS ORDERED: Magnesium Hydroxide (MOM) 30 mL UDC PO PRN ×2 (18:21→18:29)
[2018-12-05] MEDS ORDERED: Maalox 30 mL Cup PO PRN (18:21)
[2018-12-05] MEDS ORDERED: APAP/Codeine 300 mg/30 mg Tab PO PRN (18:29)
[2018-12-05 19:35] LABS: CHOLESTEROL 115 mg/dL (<200); HDL -HIGH DENSITY LIPOPROTEIN 36 mg/dL (23-92); TRIGLYCERIDES 90 mg/dL (<150)
[2018-12-05] MEDS ORDERED: Non-Formulary Item 1 EA (Melatonin [Melatonin] 3 MG) PO SCH (21:00)
[2018-12-06] MEDS: Multivitamin Tab PO SCH (08:47)
[2018-12-06] MEDS: Hydroxychloroquine 200 mg Tab PO SCH ×2 (08:47→16:39)
[2018-12-06] MEDS: Aspirin 81mg Chewable Tab PO SCH (08:47)
[2018-12-06] MEDS ORDERED: INSULIN ASPART SLIDING SCALE 100 UNITS/ML UNIT SUBQ SCH (09:00)
[2018-12-06] MEDS: Insulin Detemir 100 units/mL 10mL Vial SUBQ SCH (09:00)
--- NOTE | 2018-12-06 09:59 | History and Physical ---
History of Present Illness - HPI Chief Complaint: Increased in agitation HPI: Patient was send from SNF for evaluation due to increased in agitation. 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: Report: CVA, Dementia, Seizure GI: Report: No Pertinent Hx Psych: Report: Psychosis, Schizophrenia Musculoskeletal: Report: Other (Unstable gait) Rheumatologic: Report: No pertinent Hx Infectious Disease: Report: No Pertinent Hx Renal/: Report: No Pertinent Hx Endocrine: Report: Diabetes Dermatology: Report: No Pertinent Hx - Past Surgical History Past Surgical History: No pertinent Hx Family Medical History - Family Member Mother History Unknown: Yes Ethnicity: Unknown Living Status: Unknown Hx Family Cancer: (Unknown) Hx Family Coronary Artery Disease: (Unknown) Hx Family Congestive Heart Failure: (Unknown) Hx Family Hypertension: Yes Hx Family Stroke: (Unknown) Hx Family Diabetes: (Unknown) Hx Family Seizures: (Unknown) Hx Family Dementia: (Unknown) Hx Family AIDS: (Unknown) Hx Family COPD: (Unknown) Hx Family Hepatitis: (Unknown) Hx Family Psychiatric Problems: (Unknown) Hx Family Tuberculosis: (Unknown) Social History Smoke: No Alcohol: None Drugs: None Lives: [place]-Way Domestic Violence: Negative - Medications Home Medications: Home Medication Medication Instructions Recorded Type Aspirin [Aspirin Chewable] 81 mg PO DAILY ctb 02/18/18 Rx Atorvastatin Calcium [Lipitor] 40 mg PO HS tab 02/18/[address] [Cymbalta] 30 mg PO DAILY ecc 02/18/18 Rx Enalapril Maleate [Vasotec*] 10 mg PO DAILY tab 02/18/18 Rx aripIPRAZOLE [Abilify*] 5 mg PO DAILY tab 02/18/18 Rx metFORMIN [Glucophage] 500 mg PO BIDWM tab 02/18/18 Rx APAP/Codeine 300 mg/30 mg [Tylenol 1 tab PO TID PRN 12/05/18 History W/Codeine #3] Acetaminophen [Tylenol] 650 mg PO Q4HR PRN 12/05/18 History Bisacodyl [Dulcolax 10 Mg Supp] 10 mg RC DAILY PRN 12/05/18 History Bupropion HCl [Wellbutrin Xl] 150 mg PO DAILY 12/05/18 History Glimepiride 2 mg PO DAILY 12/05/18 History Hydroxychloroquine [Plaquenil*] 200 mg PO BID 12/05/18 History Insulin Aspart Sliding Scale See Protocol SUBQ BID 12/05/18 History [NovoLOG INSULIN SLIDING SCALE] Insulin Glargine,Hum.rec.anlog 5 unit SUBQ QAM 12/05/18 History [Lantus Solostar] Magnesium Hydroxide [Milk of 30 ml PO DAILY PRN 12/05/18 History Magnesia] Melatonin 3 mg PO HS 12/05/18 History Naproxen 500 mg PO BID 12/05/18 History Simethicone [Mylicon] 30 ml PO Q4H PRN 12/05/18 History traMADol HCl [Ultram*] 50 mg PO TID PRN 12/05/18 History - Allergies Allergies/Adverse Reactions: Allergies Allergy/AdvReac Type Severity Reaction Status Date / Time No Known Allergies Allergy Verified 02/11/18 16:09 Review of Systems - Review of Systems Constitutional: Report: No Significant Eyes: Report: No Significant ENT: Report: No Significant Respiratory: Report: No Significant Cardiovascular: Report: No Significant Gastrointestinal: Report: No Significant Genitourinary: Report: No Significant Musculoskeletal: Report: No Significant Skin: Report: No Significant Neurological: Report: Weakness Physical Exam - Physical Exam HEENT: Report: Ears Nose Throat within normal limits Neck: Report: Within normal limits Cardiovascular Systems: Report: Regular, Rate and Rhythm Respiratory: Report: Breath Sounds are within normal limits Abdomen: Report: Non-tender to palpation Back: Report: Inspection of back is within normal limits. Extremities: Report: Non-tender to palpation. Skin: Report: Color of skin is within normal limits, Warm, Dry Neuro/Psych: Report: Disoriented to name time or place, Depressed affect - Lab Results All Lab Results last 24 hours: Laboratory Results - last 24 hr 12/05/18 12/05/18 12/05/18 12:44 12:44 12:44 WBC 10.4 RBC 4.11 Hgb 12.6 Hct 37.8 L MCV 91.9 MCH 30.5 MCHC Differential 33.2 RDW 12.9 Plt Count 328 MPV 8.2 Neutrophils % 67.7 Lymphocytes % 21.1 Monocytes % 6.6 Eosinophils % 4.0 Basophils % 0.6 PT 13.3 H INR 1.30 PTT (Actin FS) 23.9 L Sodium 138 Potassium 4.3 Chloride 110 H Carbon Dioxide 18.3 L Anion Gap 14.0 BUN 28 H Creatinine 0.8 Est GFR ( Amer) TNP Est GFR (Non-Af Amer) TNP BUN/Creatinine Ratio 35.0 Glucose 291 H Calcium 8.5 L Total Bilirubin 0.3 AST 11 L ALT 10 Alkaline Phosphatase 57 Troponin I Total Protein 5.9 L Albumin 3.6 L Globulin 2.3 Albumin/Globulin Ratio 1.6 Triglycerides Cholesterol LDL Cholesterol Direct HDL Cholesterol TSH 12/05/18 12/05/18 12/05/18 12:44 12:44 12:44 WBC RBC Hgb Hct MCV MCH MCHC Differential RDW Plt Count MPV Neutrophils % Lymphocytes % Monocytes % Eosinophils % Basophils % PT INR PTT (Actin FS) Sodium Potassium Chloride Carbon Dioxide Anion Gap BUN Creatinine Est GFR ( Amer) Est GFR (Non-Af Amer) BUN/Creatinine Ratio Glucose Calcium Total Bilirubin AST ALT Alkaline Phosphatase Troponin I < 0.01 L Total Protein Albumin Globulin Albumin/Globulin Ratio Triglycerides 90 Cholesterol 115 LDL Cholesterol Direct 72 L HDL Cholesterol 36 TSH 1.75 - Assessment Assessment: Patient is awake, alert, resting in bed, in no acute distress. Dx: Increased in agitation, Schizophrenia, Dementia, DM, S/P CVS, S/P [place]. - Plan Plan: Patient is under Psychiatric care, will continue with SNF meds. Will continue to monitor.
[2018-12-06] MEDS ORDERED: INSULIN ASPART, RECOMBINANT 100 UNITS/ML SUBQ SCH (16:30)
[2018-12-06] MEDS: INSULIN ASPART SLIDING SCALE 100 UNITS/ML UNIT SUBQ SCH ×2 (16:30→20:49)
--- NOTE | 2018-12-07 01:37 | Psychiatric Evaluation ---
DATE OF SERVICE: 12/05/2018 PSYCHIATRIC EVALUATION AND EXAMINATION IDENTIFYING DATA: Information obtained by directly interviewing the patient as well as reviewing the admission papers and they are reliable. JUSTIFICATION FOR HOSPITALIZATION: The patient is admitted on a voluntary basis in view of her aggressive and agitated behavior. CHIEF COMPLAINT: "I am okay." HISTORY OF PRESENT ILLNESS: This is the second psychiatric hospitalization for this patient who was here in 02/2018. The patient is a resident of the [facility] and the patient has been reported to have been getting easily agitated, screaming and yelling and could not be contained and the patient's sleep is noted to be poor. Appetite is also noted to be very poor. The patient is very defiant and has been noncompliant with the medications and hence the patient has to be transferred over here for further stabilization. PAST PSYCHIATRIC HISTORY: Please refer to the above. MEDICAL EXAMINATION: Is requested to be done by Dr. Allen. SOCIAL HISTORY: The patient is a resident of the [facility]. PHYSICAL OR SEXUAL ABUSE HISTORY: None. LEGAL PROBLEMS: None at this time. MENTAL STATUS EXAMINATION: The patient is a 73-year-old, looking her stated age, superficially cooperative. Eye contact is fair. The patient is getting easily upset. Speech is noted to be coherent, but the patient goes on a tangent. The patient has paranoia, but denies any command hallucinations. The patient tics while there is some hesitancy in answering the questions. The patient is alert and awake and is aware that she is in the hospital. Attention span and concentration are noted to be poor. The patient is not able to recall her date of and the town she was in before coming in here. Mood is noted to be dysphoric at this time. The patient is reported to have been getting easily agitated and then the behavior has been becoming a problem for them to deal at a lower level of care and hence the patient has to be transferred to an acute care hospital. DIAGNOSTIC IMPRESSION: AXIS IA: Psychotic disorder, not otherwise specified. AXIS IB: Dementia and behavioral changes secondary to dementia. AXIS II: None. AXIS III: As per Dr. Allen. IMMEDIATE TREATMENT PLAN: The patient is going to be observed on the inpatient unit, provided with supportive psychotherapy. The patient is going to be closely monitored and encouraged to participate in the groups and verbalize the concerns and the patient is going to be started on the low dose of the Abilify and Cymbalta to deal with the psychosis and depression and the patient is going to be followed up with supportive therapy. ESTIMATED LENGTH OF STAY: 5-7 days. DISCHARGE CRITERIA: When the patient is no longer a threat to self or others and be able to cope up with the stress. JOB# [id number]
[2018-12-07] MEDS: INSULIN ASPART SLIDING SCALE 100 UNITS/ML UNIT SUBQ SCH ×4 (06:32→20:09)
[2018-12-07] MEDS: Aspirin 81mg Chewable Tab PO SCH (10:12)
[2018-12-07] MEDS: Hydroxychloroquine 200 mg Tab PO SCH ×2 (10:14→17:20)
[2018-12-07] MEDS: Multivitamin Tab PO SCH (10:14)
[2018-12-07] MEDS: Insulin Detemir 100 units/mL 10mL Vial SUBQ SCH (10:14)
--- NOTE | 2018-12-07 17:15 | Progress Notes ---
DATE: 12/07/2018 SUBJECTIVE: Staff was spoken to. The patient is interviewed. Mood is noted to be irritable. Affect is constricted. Insight and judgment noted to be still impaired. Impulse control is noted to be poor. The patient is screaming and yelling. The patient has been having difficult time to cope with the stress. No side effects to the medications are noted. The patient has been demanding that she [facility]. The patient has no insight into her illness. The patient is still screaming and yelling and could not be contained at this time and hence it is decided to start the patient with the Depakote, which is going to be given at 125 mg 1 twice a day and the patient is going to be followed up with the supportive therapy. ASSESSMENT: The patient is still impulsive. PLAN: To start the patient with the Depakote and follow her up with the supportive therapy. JOB# [id number]
--- NOTE | 2018-12-07 18:43 | General Progress Note ---
Subjective - Review of Systems Service Date: 12/07/18 Objective - Results Result Diagrams: 12/05/18 12:44 12/05/18 12:44 Recent Labs: Laboratory Last Values WBC 10.4 Th/cmm (4.8-10.8) 12/05/18 12:44 RBC 4.11 Mil/cmm (3.80-5.20) 12/05/18 12:44 Hgb 12.6 gm/dL (12-16) 12/05/18 12:44 Hct 37.8 % (41.0-60) L 12/05/18 12:44 MCV 91.9 fl (81-100) 12/05/18 12:44 MCH 30.5 pg (27.0-31.0) 12/05/18 12:44 MCHC Differential 33.2 pg (28.0-36.0) 12/05/18 12:44 RDW 12.9 % (11.5-20.0) 12/05/18 12:44 Plt Count 328 Th/cmm (150-400) 12/05/18 12:44 MPV 8.2 fl 12/05/18 12:44 Neutrophils % 67.7 % (40.0-80.0) 12/05/18 12:44 Lymphocytes % 21.1 % (20.0-50.0) 12/05/18 12:44 Monocytes % 6.6 % (2.0-10.0) 12/05/18 12:44 Eosinophils % 4.0 % (0.0-5.0) 12/05/18 12:44 Basophils % 0.6 % (0.0-2.0) 12/05/18 12:44 PT 13.3 SECONDS (9.5-11.5) H 12/05/18 12:44 INR 1.30 (0.5-1.4) 12/05/18 12:44 PTT (Actin FS) 23.9 SECONDS (26.0-38.0) L 12/05/18 12:44 Sodium 138 mEq/L (136-145) 12/05/18 12:44 Potassium 4.3 mEq/L (3.5-5.1) 12/05/18 12:44 Chloride 110 mEq/L (98-107) H 12/05/18 12:44 Carbon Dioxide 18.3 mEq/L (21.0-31.0) L 12/05/18 12:44 Anion Gap 14.0 (7.0-16.0) 12/05/18 12:44 BUN 28 mg/dL (7-25) H 12/05/18 12:44 Creatinine 0.8 mg/dL (0.6-1.2) 12/05/18 12:44 Est GFR ( Amer) TNP 12/05/18 12:44 Est GFR (Non-Af Amer) TNP 12/05/18 12:44 BUN/Creatinine Ratio 35.0 12/05/18 12:44 Glucose 291 mg/dL (70-105) H 12/05/18 12:44 Calcium 8.5 mg/dL (8.6-10.3) L 12/05/18 12:44 Total Bilirubin 0.3 mg/dL (0.3-1.0) 12/05/18 12:44 AST 11 U/L (13-39) L 12/05/18 12:44 ALT 10 U/L (7-52) 12/05/18 12:44 Alkaline Phosphatase 57 U/L (34-104) 12/05/18 12:44 Troponin I < 0.01 ng/mL (0.01-0.05) L 12/05/18 12:44 Total Protein 5.9 gm/dL (6.0-8.3) L 12/05/18 12:44 Albumin 3.6 gm/dL (3.7-5.3) L 12/05/18 12:44 Globulin 2.3 gm/dL 12/05/18 12:44 Albumin/Globulin Ratio 1.6 (1.0-1.8) 12/05/18 12:44 Triglycerides 90 mg/dL (<150) 12/05/18 12:44 Cholesterol 115 mg/dL (<200) 12/05/18 12:44 LDL Cholesterol Direct 72 mg/dL (75-193) L 12/05/18 12:44 HDL Cholesterol 36 mg/dL (23-92) 12/05/18 12:44 TSH 1.75 uIU/ml (0.34-5.60) 12/05/18 12:44 - Physical Exam Vitals and I&O: Vital Signs Temp 98.7 F 12/07/18 14:00 Pulse 85 12/07/18 14:00 Resp 18 12/07/18 14:00 BP 116/77 12/07/18 14:00 Pulse Ox 97 12/07/18 14:00 Intake & Output 12/06/18 12/07/18 12/07/18 18:59 06:59 18:59 Intake Total 800 480 700 Balance 800 480 700 Intake: Oral 800 480 700 Other: # Voids 3 2 3 # Bowel Movements 0 1 Active Medications: Current Medications Acetaminophen (Tylenol) 650 mg PO Q4HR PRN PRN Reason: Mild Pain / Temp above 100 Stop: 02/03/19 18:20 Acetaminophen/Codeine Phosphate (Tylenol W/Codeine #3) 1 tab PO TID PRN PRN Reason: MOD/SEVERE PAIN Stop: 02/03/19 18:28 Al Hydrox/Mg Hydrox/Simethicone (Maalox) 30 ml PO Q4HR PRN PRN Reason: GI DISTRESS Stop: 02/03/19 18:20 Aspirin (Aspirin Chewable) 81 mg PO DAILY [facility] Stop: 02/04/19 08:59 Last Admin: 12/07/18 10:12 Dose: Not Given Atorvastatin Calcium (Lipitor) 40 mg PO HS [facility]; Protocol Stop: 02/03/19 20:59 Last Admin: 12/06/18 20:49 Dose: 40 mg Bisacodyl (Dulcolax 10 Mg Supp) 10 mg RC DAILY PRN PRN Reason: IF MOM INEFFECTIVE Stop: 02/03/19 18:28 Divalproex Sodium (Depakote Dr) 125 mg PO Q12HR [facility]; Protocol Stop: 02/05/19 20:59 Enalapril Maleate (Vasotec) 10 mg PO DAILY [facility] Stop: 02/04/19 08:59 Last Admin: 12/07/18 10:13 Dose: Not Given Glimepiride (Amaryl) 2 mg PO DAILY [facility] Stop: 02/04/19 08:59 Last Admin: 12/07/18 10:13 Dose: Not Given Hydroxychloroquine Sulfate (Plaquenil) 200 mg PO BID [facility] Stop: 02/04/19 08:59 Last Admin: 12/07/18 17:20 Dose: 200 mg Insulin Aspart (Novolog Insulin Sliding Scale) 0 units SUBQ ACHS [facility]; Protocol Stop: 02/04/19 16:29 Last Admin: 12/07/18 17:19 Dose: Not Given Insulin Detemir (Levemir Insulin) 5 units SUBQ QAM [facility] Stop: 02/04/19 08:59 Last Admin: 12/07/18 10:14 Dose: Not Given Magnesium Hydroxide (Milk Of Magnesia) 30 ml PO HS PRN PRN Reason: Constipation Magnesium Hydroxide (Milk Of Magnesia) 30 ml PO DAILY PRN PRN Reason: BOWEL MAINTENANCE Stop: 02/03/19 18:28 Last Admin: 12/07/18 15:05 Dose: 30 ml Metformin HCl (Glucophage) 500 mg PO BIDWM [facility] Stop: 02/04/19 07:59 Last Admin: 12/07/18 17:41 Dose: 500 mg Multivitamins/Vitamin C (Theragran) 1 tab PO DAILY [facility] Stop: 02/04/19 08:59 Last Admin: 12/07/18 10:14 Dose: Not Given Naproxen (Naprosyn) 500 mg PO BID [facility] Stop: 02/04/19 08:59 Last Admin: 12/07/18 17:20 Dose: 500 mg Simethicone (Mylicon) 80 mg PO Q4H PRN PRN Reason: GI DISTRESS Stop: 02/03/19 18:28 Tramadol HCl (Ultram) 50 mg PO TID PRN PRN Reason: PAIN Stop: 02/03/19 18:28 Zolpidem Tartrate (Ambien) 5 mg PO HS PRN PRN Reason: Insomnia Stop: 02/03/19 18:20 Assessment/Plan - Assessment Assessment: Patient is awake, alert, resting in bed, in no acute distress. Dx: Increased in agitation, Schizophrenia, Dementia, DM, S/P CVS, S/P Old [place]. - Plan Plan: Patient is under Psychiatric care, will continue with SNF meds. Will continue to monitor. Nutritional Asmnt/Malnutr-PDOC - Dietary Evaluation Malnutrition Findings (Please click <Entered> for more info): Nutritional Asmnt/Malnutrition Start: 12/06/18 09: 44 Text: Status: Complete Freq: Protocol: Document 12/06/18 09:44 PRAFUL (Rec: 12/06/18 09:55 PRAFUL MENA- FN) Nutritional Asmnt/Malnutrition Patient General Information Nutritional Screening High Risk Diagnosis Psychosis Pertinent Medical Hx/Surgical Hx CAD,CHF,DM II dementia, HTN Subjective Information Patient in bed at time of visit. Per nursing notes, patient is confused and forgetful. Current Diet Order/ Nutrition Support Regular Patient / S.O Not Indicated Pertinent Medications maalox, lipitor, dulcolax, novolog, levemir, MOM, Metformin, Theragran Pertinent Labs (12/05) BUN 28, Glucose 291, Albumin 3.6 Nutritional Hx/Data Height 1.63 m Height (Calculated Centimeters) 162.6 Current Weight (lbs) 72.575 kg Weight (Calculated Kilograms) 72.6 Weight (Calculated Grams) 51464.8 [place] Body Weight 120 % [place] Body Weight 133 Body Mass Index (BMI) 27.4 Recent Weight Change No Weight Status Overweight GI Symptoms GI Symptoms None Last BM none noted since admission Difficult in: None Food Allergies No Cultural/Ethnic/Judaism Belief none indicated Usual diet at home unknown Skin Integrity/Comment: [place] 17, area of concern Current %PO Fair (50-74%) Estimated Nutritional Goals BEE in Kcals: Adj wt of IBW Calories/Kcals/Kg 25-30 kcal/kg using 59kg Adj wt Kcals Calculated ~7523-6620 kcal/day Protein: Adj wt of IBW Protein g/k-1.2 gm/kg Protein Calculated 60-70 gm/day Fluid: ml ~7524-0271 ml/day Nutritional Problem 1. Problem Problem Altered nutrition related lab values related to Etiology uncontrolled hyperglycemia aeb Signs/Symptoms: glucose 291 Intervention/Recommendation Comments 1. Consider modifying diet to 60gm CCHO for optimal glycemic control. Expected Outcomes/Goals Expected Outcomes/Goals Oral intake >75% of meals, weight stable or trend toward IBW, glucose normalizes
[2018-12-08] MEDS: INSULIN ASPART SLIDING SCALE 100 UNITS/ML UNIT SUBQ SCH ×3 (06:38→20:30)
--- NOTE | 2018-12-08 08:39 | General Progress Note ---
Subjective - Review of Systems Service Date: 12/08/18 Subjective: Patient is confused Objective - Results Result Diagrams: 12/05/18 12:44 12/05/18 12:44 Recent Labs: Laboratory Last Values WBC 10.4 Th/cmm (4.8-10.8) 12/05/18 12:44 RBC 4.11 Mil/cmm (3.80-5.20) 12/05/18 12:44 Hgb 12.6 gm/dL (12-16) 12/05/18 12:44 Hct 37.8 % (41.0-60) L 12/05/18 12:44 MCV 91.9 fl (81-100) 12/05/18 12:44 MCH 30.5 pg (27.0-31.0) 12/05/18 12:44 MCHC Differential 33.2 pg (28.0-36.0) 12/05/18 12:44 RDW 12.9 % (11.5-20.0) 12/05/18 12:44 Plt Count 328 Th/cmm (150-400) 12/05/18 12:44 MPV 8.2 fl 12/05/18 12:44 Neutrophils % 67.7 % (40.0-80.0) 12/05/18 12:44 Lymphocytes % 21.1 % (20.0-50.0) 12/05/18 12:44 Monocytes % 6.6 % (2.0-10.0) 12/05/18 12:44 Eosinophils % 4.0 % (0.0-5.0) 12/05/18 12:44 Basophils % 0.6 % (0.0-2.0) 12/05/18 12:44 PT 13.3 SECONDS (9.5-11.5) H 12/05/18 12:44 INR 1.30 (0.5-1.4) 12/05/18 12:44 PTT (Actin FS) 23.9 SECONDS (26.0-38.0) L 12/05/18 12:44 Sodium 138 mEq/L (136-145) 12/05/18 12:44 Potassium 4.3 mEq/L (3.5-5.1) 12/05/18 12:44 Chloride 110 mEq/L (98-107) H 12/05/18 12:44 Carbon Dioxide 18.3 mEq/L (21.0-31.0) L 12/05/18 12:44 Anion Gap 14.0 (7.0-16.0) 12/05/18 12:44 BUN 28 mg/dL (7-25) H 12/05/18 12:44 Creatinine 0.8 mg/dL (0.6-1.2) 12/05/18 12:44 Est GFR ( Amer) TNP 12/05/18 12:44 Est GFR (Non-Af Amer) TNP 12/05/18 12:44 BUN/Creatinine Ratio 35.0 12/05/18 12:44 Glucose 291 mg/dL (70-105) H 12/05/18 12:44 Calcium 8.5 mg/dL (8.6-10.3) L 12/05/18 12:44 Total Bilirubin 0.3 mg/dL (0.3-1.0) 12/05/18 12:44 AST 11 U/L (13-39) L 12/05/18 12:44 ALT 10 U/L (7-52) 12/05/18 12:44 Alkaline Phosphatase 57 U/L (34-104) 12/05/18 12:44 Troponin I < 0.01 ng/mL (0.01-0.05) L 12/05/18 12:44 Total Protein 5.9 gm/dL (6.0-8.3) L 12/05/18 12:44 Albumin 3.6 gm/dL (3.7-5.3) L 12/05/18 12:44 Globulin 2.3 gm/dL 12/05/18 12:44 Albumin/Globulin Ratio 1.6 (1.0-1.8) 12/05/18 12:44 Triglycerides 90 mg/dL (<150) 12/05/18 12:44 Cholesterol 115 mg/dL (<200) 12/05/18 12:44 LDL Cholesterol Direct 72 mg/dL (75-193) L 12/05/18 12:44 HDL Cholesterol 36 mg/dL (23-92) 12/05/18 12:44 TSH 1.75 uIU/ml (0.34-5.60) 12/05/18 12:44 - Physical Exam Vitals and I&O: Vital Signs Temp 97.8 F 12/08/18 05:08 Pulse 89 12/08/18 05:08 Resp 20 12/08/18 05:08 BP 104/56 12/08/18 05:08 Pulse Ox 98 12/08/18 05:08 Intake & Output 12/07/18 12/08/18 12/08/18 18:59 06:59 18:59 Intake Total 700 240 Balance 700 240 Intake: Oral 700 240 Other: # Voids 3 2 # Bowel Movements 1 Active Medications: Current Medications Acetaminophen (Tylenol) 650 mg PO Q4HR PRN PRN Reason: Mild Pain / Temp above 100 Stop: 02/03/19 18:20 Acetaminophen/Codeine Phosphate (Tylenol W/Codeine #3) 1 tab PO TID PRN PRN Reason: MOD/SEVERE PAIN Stop: 02/03/19 18:28 Al Hydrox/Mg Hydrox/Simethicone (Maalox) 30 ml PO Q4HR PRN PRN Reason: GI DISTRESS Stop: 02/03/19 18:20 Aspirin (Aspirin Chewable) 81 mg PO DAILY [facility] Stop: 02/04/19 08:59 Last Admin: 12/07/18 10:12 Dose: Not Given Atorvastatin Calcium (Lipitor) 40 mg PO HS [facility]; Protocol Stop: 02/03/19 20:59 Last Admin: 12/07/18 20:10 Dose: Not Given Bisacodyl (Dulcolax 10 Mg Supp) 10 mg RC DAILY PRN PRN Reason: IF MOM INEFFECTIVE Stop: 02/03/19 18:28 Divalproex Sodium (Depakote Dr) 125 mg PO Q12HR [facility]; Protocol Stop: 02/05/19 20:59 Last Admin: 12/07/18 20:09 Dose: Not Given Enalapril Maleate (Vasotec) 10 mg PO DAILY [facility] Stop: 02/04/19 08:59 Last Admin: 12/07/18 10:13 Dose: Not Given Glimepiride (Amaryl) 2 mg PO DAILY [facility] Stop: 02/04/19 08:59 Last Admin: 12/07/18 10:13 Dose: Not Given Hydroxychloroquine Sulfate (Plaquenil) 200 mg PO BID [facility] Stop: 02/04/19 08:59 Last Admin: 12/07/18 17:20 Dose: 200 mg Insulin Aspart (Novolog Insulin Sliding Scale) 0 units SUBQ ACHS [facility]; Protocol Stop: 02/04/19 16:29 Last Admin: 12/08/18 06:38 Dose: Not Given Insulin Detemir (Levemir Insulin) 5 units SUBQ QAM [facility] Stop: 02/04/19 08:59 Last Admin: 12/07/18 10:14 Dose: Not Given Magnesium Hydroxide (Milk Of Magnesia) 30 ml PO HS PRN PRN Reason: Constipation Magnesium Hydroxide (Milk Of Magnesia) 30 ml PO DAILY PRN PRN Reason: BOWEL MAINTENANCE Stop: 02/03/19 18:28 Last Admin: 12/07/18 15:05 Dose: 30 ml Metformin HCl (Glucophage) 500 mg PO BIDWM [facility] Stop: 02/04/19 07:59 Last Admin: 12/07/18 17:41 Dose: 500 mg Multivitamins/Vitamin C (Theragran) 1 tab PO DAILY [facility] Stop: 02/04/19 08:59 Last Admin: 12/07/18 10:14 Dose: Not Given Naproxen (Naprosyn) 500 mg PO BID [facility] Stop: 02/04/19 08:59 Last Admin: 12/07/18 17:20 Dose: 500 mg Simethicone (Mylicon) 80 mg PO Q4H PRN PRN Reason: GI DISTRESS Stop: 02/03/19 18:28 Tramadol HCl (Ultram) 50 mg PO TID PRN PRN Reason: PAIN Stop: 02/03/19 18:28 Zolpidem Tartrate (Ambien) 5 mg PO HS PRN PRN Reason: Insomnia Stop: 02/03/19 18:20 General: Alert, Other (Confused) HEENT: Atraumatic Neck: Supple Cardiovascular: Regular rate Lungs: Clear to auscultation Abdomen: Bowel sounds, Soft Extremities: Other (No edema) Neurological: Other (Non ambulatory) Skin: Other (Warm and dry) Psych/Mental Status: Other (Confused, not oriented) Assessment/Plan - Assessment Assessment: Patient is awake, alert, resting in bed, in no acute distress. Dx: Increased in agitation, Schizophrenia, Dementia, DM, S/P CVS, S/P Old PR. - Plan Plan: Patient is under Psychiatric care, will continue with SNF meds. Will continue to monitor. Nutritional Asmnt/Malnutr-PDOC - Dietary Evaluation Malnutrition Findings (Please click <Entered> for more info): Nutritional Asmnt/Malnutrition Start: 12/06/18 09: 44 Text: Status: Complete Freq: Protocol: Document 12/06/18 09:44 PRAFUL (Rec: 12/06/18 09:55 MARCIOSANTIAGO MENA- [email or web address]) Nutritional Asmnt/Malnutrition Patient General Information Nutritional Screening High Risk Diagnosis Psychosis Pertinent Medical Hx/Surgical Hx CAD,CHF,DM II dementia, HTN Subjective Information Patient in bed at time of visit. Per nursing notes, patient is confused and forgetful. Current Diet Order/ Nutrition Support Regular Patient / S.O Not Indicated Pertinent Medications maalox, lipitor, dulcolax, novolog, levemir, MOM, Metformin, Theragran Pertinent Labs (12/05) BUN 28, Glucose 291, Albumin 3.6 Nutritional Hx/Data Height 1.63 m Height (Calculated Centimeters) 162.6 Current Weight (lbs) 72.575 kg Weight (Calculated Kilograms) 72.6 Weight (Calculated Grams) 37565.8 [place] Body Weight 120 % [place] Body Weight 133 Body Mass Index (BMI) 27.4 Recent Weight Change No Weight Status Overweight GI Symptoms GI Symptoms None Last BM none noted since admission Difficult in: None Food Allergies No Cultural/Ethnic/Worship Belief none indicated Usual diet at home unknown Skin Integrity/Comment: Frank[place] 17, area of concern Current %PO Fair (50-74%) Estimated Nutritional Goals BEE in Kcals: Adj wt of IBW Calories/Kcals/Kg 25-30 kcal/kg using 59kg Adj wt Kcals Calculated ~6948-3434 kcal/day Protein: Adj wt of IBW Protein g/k-1.2 gm/kg Protein Calculated 60-70 gm/day Fluid: ml ~4623-3932 ml/day Nutritional Problem 1. Problem Problem Altered nutrition related lab values related to Etiology uncontrolled hyperglycemia aeb Signs/Symptoms: glucose 291 Intervention/Recommendation Comments 1. Consider modifying diet to 60gm CCHO for optimal glycemic control. Expected Outcomes/Goals Expected Outcomes/Goals Oral intake >75% of meals, weight stable or trend toward IBW, glucose normalizes
[2018-12-08] MEDS: Aspirin 81mg Chewable Tab PO SCH (09:07)
[2018-12-08] MEDS: Multivitamin Tab PO SCH (09:07)
[2018-12-08] MEDS: Hydroxychloroquine 200 mg Tab PO SCH ×2 (09:07→17:22)
[2018-12-08] MEDS: Insulin Detemir 100 units/mL 10mL Vial SUBQ SCH (09:08)
--- NOTE | 2018-12-08 23:24 | Progress Notes ---
DATE: 12/08/2018 PSYCHIATRIC PROGRESS NOTE SUBJECTIVE: Staff was spoken to. The patient is interviewed. Mood is noted to be irritable. Affect is constricted. Insight and judgment at this time are noted to be still impaired. Impulse control is noted to be poor. Coping skills are noted to be very poor. The patient is screaming and yelling. The patient has no insight into her illness. ASSESSMENT: The patient is still paranoid and demented. PLAN: To continue the patient with supportive therapy and continue the patient with Depakote and add a low dose of the Seroquel at nighttime and follow the patient with the supportive therapy. The patient is not ready to be discharged to a lower level of care in view of her agitation and psychosis. [facility]# [id number]
--- NOTE | 2018-12-09 05:12 | Consultation ---
DATE OF CONSULTATION: 12/08/2018 REFERRING PHYSICIAN: Loida Curry M.D. TYPE OF CONSULTATION: Psychology. HISTORY OF PRESENT ILLNESS: The patient is a 73-year-old female. The following is by record review and by the patient's self-report. The patient is a resident of [facility]. The patient is being admitted due to aggressive and agitated behavior. The staff at the patient's facility report that she has been getting easily agitated with screaming and yelling episodes and is uncontainable. Upon interview the patient states that she does not feel she needs to be hospitalized. Staff reports the patient has been noncompliant with medications as well. The patient denied any suicidal ideation, plan or intention at the time of this clinical interview. PAST MEDICAL HISTORY: Please see history and physical by Dr. Allen. PAST PSYCHIATRIC HISTORY: The patient has a history of previous psychiatric hospitalization and a history of dementia with behavioral disturbance. The patient is seen by a psychiatrist at her placement. SUBSTANCE ABUSE HISTORY: The patient denied any history. PSYCHOSOCIAL HISTORY: The patient did not answer questions about occupational or educational history or uatsdin affiliation. She denied any history of physical or sexual abuse. The patient states no current legal problems. The patient did not give any information about family members involved in her care or family relationships. MENTAL STATUS EXAMINATION: The patient appears to be her stated age. The patient's attitude is superficially cooperative. Eye contact is fair. Speech is spontaneous with episodes of yelling. Mood is frustrated and agitated. Affect is mood congruent and reactive. Thought process shows to be markedly tangential. The patient denied any suicidal ideation, plan, or intention. However, there is some evidence of paranoid ideation. The patient denied any auditory or visual hallucinations. The patient's behavior has been difficult to redirect on the unit. Sensorium is alert and oriented to self and place only. Impulse control is inadequate. Concentration is noted to be poor. The patient did not participate in the memory assessment. The patient was unable to give her correct age, date of , or the name of her facility. It appears that short term and long-term memory are possibly impaired, but need further evaluation. The patient did not participate in the interpretation of proverbs. The patient continued to be easily agitated during this clinical interview. Insight is impaired. Judgment is impaired. DIAGNOSTIC IMPRESSION: AXIS I: 1. Psychotic disorder, not otherwise specified. 2. Dementia with behavioral disturbance. AXIS II: Deferred. AXIS III: Per Dr. Allen. TREATMENT PLAN: The patient has been seen by Dr. Curry for psychiatric evaluation and for the management of the patient's psychotropic medications. We will provide supportive psychotherapy to include reality orientation, differentiation, and integration. We will provide limit setting and de-escalation. We will encourage the patient to demonstrate emotional and self-regulation. We will encourage the patient to verbally contract for safety. We will provide motivational enhancement for the patient to become compliant and stay compliant with all aspects of her care and treatment. The attending psychiatrist indicates the patient is being started on a low dose of Abilify and Cymbalta specifically for psychosis and depression. We will provide coping strategies for phase of life issues as well. Thank you, Dr. Curry, for this consult and the opportunity to participate in this patient's care. JOB# [id number] YAIR
[2018-12-09] MEDS: INSULIN ASPART SLIDING SCALE 100 UNITS/ML UNIT SUBQ SCH ×4 (06:39→20:34)
--- NOTE | 2018-12-09 08:40 | General Progress Note ---
Subjective - Review of Systems Service Date: 12/09/18 Subjective: Patient is confused Objective - Results Result Diagrams: 12/05/18 12:44 12/05/18 12:44 Recent Labs: Laboratory Last Values WBC 10.4 Th/cmm (4.8-10.8) 12/05/18 12:44 RBC 4.11 Mil/cmm (3.80-5.20) 12/05/18 12:44 Hgb 12.6 gm/dL (12-16) 12/05/18 12:44 Hct 37.8 % (41.0-60) L 12/05/18 12:44 MCV 91.9 fl (81-100) 12/05/18 12:44 MCH 30.5 pg (27.0-31.0) 12/05/18 12:44 MCHC Differential 33.2 pg (28.0-36.0) 12/05/18 12:44 RDW 12.9 % (11.5-20.0) 12/05/18 12:44 Plt Count 328 Th/cmm (150-400) 12/05/18 12:44 MPV 8.2 fl 12/05/18 12:44 Neutrophils % 67.7 % (40.0-80.0) 12/05/18 12:44 Lymphocytes % 21.1 % (20.0-50.0) 12/05/18 12:44 Monocytes % 6.6 % (2.0-10.0) 12/05/18 12:44 Eosinophils % 4.0 % (0.0-5.0) 12/05/18 12:44 Basophils % 0.6 % (0.0-2.0) 12/05/18 12:44 PT 13.3 SECONDS (9.5-11.5) H 12/05/18 12:44 INR 1.30 (0.5-1.4) 12/05/18 12:44 PTT (Actin FS) 23.9 SECONDS (26.0-38.0) L 12/05/18 12:44 Sodium 138 mEq/L (136-145) 12/05/18 12:44 Potassium 4.3 mEq/L (3.5-5.1) 12/05/18 12:44 Chloride 110 mEq/L (98-107) H 12/05/18 12:44 Carbon Dioxide 18.3 mEq/L (21.0-31.0) L 12/05/18 12:44 Anion Gap 14.0 (7.0-16.0) 12/05/18 12:44 BUN 28 mg/dL (7-25) H 12/05/18 12:44 Creatinine 0.8 mg/dL (0.6-1.2) 12/05/18 12:44 Est GFR ( Amer) TNP 12/05/18 12:44 Est GFR (Non-Af Amer) TNP 12/05/18 12:44 BUN/Creatinine Ratio 35.0 12/05/18 12:44 Glucose 291 mg/dL (70-105) H 12/05/18 12:44 Calcium 8.5 mg/dL (8.6-10.3) L 12/05/18 12:44 Total Bilirubin 0.3 mg/dL (0.3-1.0) 12/05/18 12:44 AST 11 U/L (13-39) L 12/05/18 12:44 ALT 10 U/L (7-52) 12/05/18 12:44 Alkaline Phosphatase 57 U/L (34-104) 12/05/18 12:44 Troponin I < 0.01 ng/mL (0.01-0.05) L 12/05/18 12:44 Total Protein 5.9 gm/dL (6.0-8.3) L 12/05/18 12:44 Albumin 3.6 gm/dL (3.7-5.3) L 12/05/18 12:44 Globulin 2.3 gm/dL 12/05/18 12:44 Albumin/Globulin Ratio 1.6 (1.0-1.8) 12/05/18 12:44 Triglycerides 90 mg/dL (<150) 12/05/18 12:44 Cholesterol 115 mg/dL (<200) 12/05/18 12:44 LDL Cholesterol Direct 72 mg/dL (75-193) L 12/05/18 12:44 HDL Cholesterol 36 mg/dL (23-92) 12/05/18 12:44 TSH 1.75 uIU/ml (0.34-5.60) 12/05/18 12:44 - Physical Exam Vitals and I&O: Vital Signs Temp 97.1 F 12/09/18 06:32 Pulse 83 12/09/18 06:32 Resp 20 12/09/18 06:32 BP 165/66 12/09/18 06:32 Pulse Ox 98 12/09/18 06:32 Intake & Output 12/08/18 12/09/18 12/09/18 18:59 06:59 18:59 Intake Total 1800 240 Balance 1800 240 Intake: Oral 1800 240 Other: # Voids 4 2 # Bowel Movements 4 Active Medications: Current Medications Acetaminophen (Tylenol) 650 mg PO Q4HR PRN PRN Reason: Mild Pain / Temp above 100 Stop: 02/03/19 18:20 Acetaminophen/Codeine Phosphate (Tylenol W/Codeine #3) 1 tab PO TID PRN PRN Reason: MOD/SEVERE PAIN Stop: 02/03/19 18:28 Al Hydrox/Mg Hydrox/Simethicone (Maalox) 30 ml PO Q4HR PRN PRN Reason: GI DISTRESS Stop: 02/03/19 18:20 Aspirin (Aspirin Chewable) 81 mg PO DAILY [facility] Stop: 02/04/19 08:59 Last Admin: 12/08/18 09:07 Dose: 81 mg Atorvastatin Calcium (Lipitor) 40 mg PO HS [facility]; Protocol Stop: 02/03/19 20:59 Last Admin: 12/08/18 20:26 Dose: 40 mg Bisacodyl (Dulcolax 10 Mg Supp) 10 mg RC DAILY PRN PRN Reason: IF MOM INEFFECTIVE Stop: 02/03/19 18:28 Divalproex Sodium (Depakote Dr) 125 mg PO Q12HR [facility]; Protocol Stop: 02/05/19 20:59 Last Admin: 12/08/18 20:27 Dose: 125 mg Enalapril Maleate (Vasotec) 10 mg PO DAILY [facility] Stop: 02/04/19 08:59 Last Admin: 12/08/18 09:08 Dose: Not Given Glimepiride (Amaryl) 2 mg PO DAILY [facility] Stop: 02/04/19 08:59 Last Admin: 12/08/18 09:07 Dose: 2 mg Hydroxychloroquine Sulfate (Plaquenil) 200 mg PO BID [facility] Stop: 02/04/19 08:59 Last Admin: 12/08/18 17:22 Dose: 200 mg Insulin Aspart (Novolog Insulin Sliding Scale) 0 units SUBQ ACHS [facility]; Protocol Stop: 02/04/19 16:29 Last Admin: 12/09/18 06:39 Dose: Not Given Insulin Detemir (Levemir Insulin) 5 units SUBQ QAM [facility] Stop: 02/04/19 08:59 Last Admin: 12/08/18 09:08 Dose: 5 units Magnesium Hydroxide (Milk Of Magnesia) 30 ml PO HS PRN PRN Reason: Constipation Magnesium Hydroxide (Milk Of Magnesia) 30 ml PO DAILY PRN PRN Reason: BOWEL MAINTENANCE Stop: 02/03/19 18:28 Last Admin: 12/07/18 15:05 Dose: 30 ml Metformin HCl (Glucophage) 500 mg PO BIDWM [facility] Stop: 02/04/19 07:59 Last Admin: 12/08/18 17:22 Dose: 500 mg Multivitamins/Vitamin C (Theragran) 1 tab PO DAILY [facility] Stop: 02/04/19 08:59 Last Admin: 12/08/18 09:07 Dose: 1 tab Naproxen (Naprosyn) 500 mg PO BID [facility] Stop: 02/04/19 08:59 Last Admin: 12/08/18 17:22 Dose: 500 mg Quetiapine Fumarate (Seroquel) 12.5 mg PO HS [facility]; Protocol Stop: 02/06/19 20:59 Simethicone (Mylicon) 80 mg PO Q4H PRN PRN Reason: GI DISTRESS Stop: 02/03/19 18:28 Tramadol HCl (Ultram) 50 mg PO TID PRN PRN Reason: PAIN Stop: 02/03/19 18:28 Zolpidem Tartrate (Ambien) 5 mg PO HS PRN PRN Reason: Insomnia Stop: 02/03/19 18:20 General: Alert, Other (Confused) HEENT: Atraumatic Neck: Supple Cardiovascular: Regular rate Lungs: Clear to auscultation Abdomen: Bowel sounds, Soft Extremities: Other (No edema) Neurological: Other (Non ambulatory) Skin: Other (Warm and dry) Psych/Mental Status: Other (Confused, not oriented) Assessment/Plan - Assessment Assessment: Patient is awake, alert, resting in bed, in no acute distress. Dx: Increased in agitation, Schizophrenia, Dementia, DM, S/P CVS, S/P Old PR. - Plan Plan: Patient is under Psychiatric care, will continue with SNF meds. Will continue to monitor. Nutritional Asmnt/Malnutr-PDOC - Dietary Evaluation Malnutrition Findings (Please click <Entered> for more info): Nutritional Asmnt/Malnutrition Start: 12/06/18 09: 44 Text: Status: Complete Freq: Protocol: Document 12/06/18 09:44 [email or web address] (Rec: 12/06/18 09:55 MMULFreddie RAJESH- FNS1) Nutritional Asmnt/Malnutrition Patient General Information Nutritional Screening High Risk Diagnosis Psychosis Pertinent Medical Hx/Surgical Hx CAD,CHF,DM II dementia, HTN Subjective Information Patient in bed at time of visit. Per nursing notes, patient is confused and forgetful. Current Diet Order/ Nutrition Support Regular Patient / S.O Not Indicated Pertinent Medications maalox, lipitor, dulcolax, novolog, levemir, MOM, Metformin, Theragran Pertinent Labs (12/05) BUN 28, Glucose 291, Albumin 3.6 Nutritional Hx/Data Height 1.63 m Height (Calculated Centimeters) 162.6 Current Weight (lbs) 72.575 kg Weight (Calculated Kilograms) 72.6 Weight (Calculated Grams) 38232.8 [place] Body Weight 120 % [place] Body Weight 133 Body Mass Index (BMI) 27.4 Recent Weight Change No Weight Status Overweight GI Symptoms GI Symptoms None Last BM none noted since admission Difficult in: None Food Allergies No Cultural/Ethnic/Amish Belief none indicated Usual diet at home unknown Skin Integrity/Comment: Frank[place] 17, area of concern Current %PO Fair (50-74%) Estimated Nutritional Goals BEE in Kcals: Adj wt of IBW Calories/Kcals/Kg 25-30 kcal/kg using 59kg Adj wt Kcals Calculated ~6841-4900 kcal/day Protein: Adj wt of IBW Protein g/k-1.2 gm/kg Protein Calculated 60-70 gm/day Fluid: ml ~7516-3534 ml/day Nutritional Problem 1. Problem Problem Altered nutrition related lab values related to Etiology uncontrolled hyperglycemia aeb Signs/Symptoms: glucose 291 Intervention/Recommendation Comments 1. Consider modifying diet to 60gm CCHO for optimal glycemic control. Expected Outcomes/Goals Expected Outcomes/Goals Oral intake >75% of meals, weight stable or trend toward IBW, glucose normalizes
[2018-12-09] MEDS: Aspirin 81mg Chewable Tab PO SCH (09:04)
[2018-12-09] MEDS: Hydroxychloroquine 200 mg Tab PO SCH ×2 (09:05→17:24)
[2018-12-09] MEDS: Insulin Detemir 100 units/mL 10mL Vial SUBQ SCH (09:05)
[2018-12-09] MEDS: Multivitamin Tab PO SCH (09:05)
--- NOTE | 2018-12-09 14:37 | Progress Notes ---
DATE: 12/09/2018 SUBJECTIVE: Staff was spoken to. The patient is interviewed. Mood is noted to be irritable. Affect is constricted. Coping skills are noted to be still poor. The patient has been tending to scream and yell and the patient is not able to contract for safety. No side effects to the medications are noted. ASSESSMENT: The patient is still impulsive and is not able to contract for safety. PLAN: To continue the patient with the supportive therapy and followup. JOB# [id number]
[2018-12-10] MEDS: INSULIN ASPART SLIDING SCALE 100 UNITS/ML UNIT SUBQ SCH ×4 (06:44→20:51)
[2018-12-10] MEDS: Aspirin 81mg Chewable Tab PO SCH (08:15)
[2018-12-10] MEDS: Hydroxychloroquine 200 mg Tab PO SCH ×2 (08:15→18:00)
[2018-12-10] MEDS: Multivitamin Tab PO SCH (08:15)
[2018-12-10] MEDS: Insulin Detemir 100 units/mL 10mL Vial SUBQ SCH (08:24)
--- NOTE | 2018-12-10 08:41 | General Progress Note ---
Subjective - Review of Systems Service Date: 12/10/18 Subjective: Patient is confused Objective - Results Result Diagrams: 12/05/18 12:44 12/05/18 12:44 Recent Labs: Laboratory Last Values WBC 10.4 Th/cmm (4.8-10.8) 12/05/18 12:44 RBC 4.11 Mil/cmm (3.80-5.20) 12/05/18 12:44 Hgb 12.6 gm/dL (12-16) 12/05/18 12:44 Hct 37.8 % (41.0-60) L 12/05/18 12:44 MCV 91.9 fl (81-100) 12/05/18 12:44 MCH 30.5 pg (27.0-31.0) 12/05/18 12:44 MCHC Differential 33.2 pg (28.0-36.0) 12/05/18 12:44 RDW 12.9 % (11.5-20.0) 12/05/18 12:44 Plt Count 328 Th/cmm (150-400) 12/05/18 12:44 MPV 8.2 fl 12/05/18 12:44 Neutrophils % 67.7 % (40.0-80.0) 12/05/18 12:44 Lymphocytes % 21.1 % (20.0-50.0) 12/05/18 12:44 Monocytes % 6.6 % (2.0-10.0) 12/05/18 12:44 Eosinophils % 4.0 % (0.0-5.0) 12/05/18 12:44 Basophils % 0.6 % (0.0-2.0) 12/05/18 12:44 PT 13.3 SECONDS (9.5-11.5) H 12/05/18 12:44 INR 1.30 (0.5-1.4) 12/05/18 12:44 PTT (Actin FS) 23.9 SECONDS (26.0-38.0) L 12/05/18 12:44 Sodium 138 mEq/L (136-145) 12/05/18 12:44 Potassium 4.3 mEq/L (3.5-5.1) 12/05/18 12:44 Chloride 110 mEq/L (98-107) H 12/05/18 12:44 Carbon Dioxide 18.3 mEq/L (21.0-31.0) L 12/05/18 12:44 Anion Gap 14.0 (7.0-16.0) 12/05/18 12:44 BUN 28 mg/dL (7-25) H 12/05/18 12:44 Creatinine 0.8 mg/dL (0.6-1.2) 12/05/18 12:44 Est GFR ( Amer) TNP 12/05/18 12:44 Est GFR (Non-Af Amer) TNP 12/05/18 12:44 BUN/Creatinine Ratio 35.0 12/05/18 12:44 Glucose 291 mg/dL (70-105) H 12/05/18 12:44 Calcium 8.5 mg/dL (8.6-10.3) L 12/05/18 12:44 Total Bilirubin 0.3 mg/dL (0.3-1.0) 12/05/18 12:44 AST 11 U/L (13-39) L 12/05/18 12:44 ALT 10 U/L (7-52) 12/05/18 12:44 Alkaline Phosphatase 57 U/L (34-104) 12/05/18 12:44 Troponin I < 0.01 ng/mL (0.01-0.05) L 12/05/18 12:44 Total Protein 5.9 gm/dL (6.0-8.3) L 12/05/18 12:44 Albumin 3.6 gm/dL (3.7-5.3) L 12/05/18 12:44 Globulin 2.3 gm/dL 12/05/18 12:44 Albumin/Globulin Ratio 1.6 (1.0-1.8) 12/05/18 12:44 Triglycerides 90 mg/dL (<150) 12/05/18 12:44 Cholesterol 115 mg/dL (<200) 12/05/18 12:44 LDL Cholesterol Direct 72 mg/dL (75-193) L 12/05/18 12:44 HDL Cholesterol 36 mg/dL (23-92) 12/05/18 12:44 TSH 1.75 uIU/ml (0.34-5.60) 12/05/18 12:44 - Physical Exam Vitals and I&O: Vital Signs Temp 98.4 F 12/10/18 06:02 Pulse 88 12/10/18 08:16 Resp 20 12/10/18 06:02 BP 127/66 12/10/18 08:16 Pulse Ox 99 12/10/18 06:02 Intake & Output 12/09/18 12/10/18 12/10/18 18:59 06:59 18:59 Intake Total 800 240 Output Total 1 Balance 800 239 Intake: Oral 800 240 Output: Urine/Stool Mix 1 Other: # Voids 3 1 # Bowel Movements 1 1 Active Medications: Current Medications Acetaminophen (Tylenol) 650 mg PO Q4HR PRN PRN Reason: Mild Pain / Temp above 100 Stop: 02/03/19 18:20 Acetaminophen/Codeine Phosphate (Tylenol W/Codeine #3) 1 tab PO TID PRN PRN Reason: MOD/SEVERE PAIN Stop: 02/03/19 18:28 Al Hydrox/Mg Hydrox/Simethicone (Maalox) 30 ml PO Q4HR PRN PRN Reason: GI DISTRESS Stop: 02/03/19 18:20 Aspirin (Aspirin Chewable) 81 mg PO DAILY [facility] Stop: 02/04/19 08:59 Last Admin: 12/10/18 08:15 Dose: 81 mg Atorvastatin Calcium (Lipitor) 40 mg PO HS [facility]; Protocol Stop: 02/03/19 20:59 Last Admin: 12/09/18 20:33 Dose: 40 mg Bisacodyl (Dulcolax 10 Mg Supp) 10 mg RC DAILY PRN PRN Reason: IF MOM INEFFECTIVE Stop: 02/03/19 18:28 Divalproex Sodium (Depakote Dr) 125 mg PO Q12HR [facility]; Protocol Stop: 02/05/19 20:59 Last Admin: 12/10/18 08:15 Dose: 125 mg Enalapril Maleate (Vasotec) 10 mg PO DAILY [facility] Stop: 02/04/19 08:59 Last Admin: 12/10/18 08:16 Dose: 10 mg Glimepiride (Amaryl) 2 mg PO DAILY [facility] Stop: 02/04/19 08:59 Last Admin: 12/10/18 08:13 Dose: 2 mg Hydroxychloroquine Sulfate (Plaquenil) 200 mg PO BID [facility] Stop: 02/04/19 08:59 Last Admin: 12/10/18 08:15 Dose: 200 mg Insulin Aspart (Novolog Insulin Sliding Scale) 0 units SUBQ ACHS [facility]; Protocol Stop: 02/04/19 16:29 Last Admin: 12/10/18 06:44 Dose: Not Given Insulin Detemir (Levemir Insulin) 5 units SUBQ QAM [facility] Stop: 02/04/19 08:59 Last Admin: 12/10/18 08:24 Dose: 5 units Magnesium Hydroxide (Milk Of Magnesia) 30 ml PO HS PRN PRN Reason: Constipation Magnesium Hydroxide (Milk Of Magnesia) 30 ml PO DAILY PRN PRN Reason: BOWEL MAINTENANCE Stop: 02/03/19 18:28 Last Admin: 12/07/18 15:05 Dose: 30 ml Metformin HCl (Glucophage) 500 mg PO BIDWM [facility] Stop: 02/04/19 07:59 Last Admin: 12/10/18 08:15 Dose: 500 mg Multivitamins/Vitamin C (Theragran) 1 tab PO DAILY [facility] Stop: 02/04/19 08:59 Last Admin: 12/10/18 08:15 Dose: 1 tab Naproxen (Naprosyn) 500 mg PO BID [facility] Stop: 02/04/19 08:59 Last Admin: 12/10/18 08:13 Dose: 500 mg Quetiapine Fumarate (Seroquel) 12.5 mg PO HS [facility] Stop: 02/08/19 20:59 Simethicone (Mylicon) 80 mg PO Q4H PRN PRN Reason: GI DISTRESS Stop: 02/03/19 18:28 Tramadol HCl (Ultram) 50 mg PO TID PRN PRN Reason: PAIN Stop: 02/03/19 18:28 Zolpidem Tartrate (Ambien) 5 mg PO HS PRN PRN Reason: Insomnia Stop: 02/03/19 18:20 General: Alert, Other (Confused) HEENT: Atraumatic Neck: Supple Cardiovascular: Regular rate Lungs: Clear to auscultation Abdomen: Bowel sounds, Soft Extremities: Other (No edema) Neurological: Other (Non ambulatory) Skin: Other (Warm and dry) Psych/Mental Status: Other (Confused, not oriented) Assessment/Plan - Assessment Assessment: Patient is awake, alert, resting in bed, in no acute distress. Dx: Increased in agitation, Schizophrenia, Dementia, DM, S/P CVS, S/P Old [place]. - Plan Plan: Patient is under Psychiatric care, will continue with SNF meds. Will continue to monitor. Nutritional Asmnt/Malnutr-PDOC - Dietary Evaluation Malnutrition Findings (Please click <Entered> for more info): Nutritional Asmnt/Malnutrition Start: 12/06/18 09: 44 Text: Status: Complete Freq: Protocol: Document 12/06/18 09:44 [email or web address] (Rec: 12/06/18 09:55 [email or web address] MENA- FNS1) Nutritional Asmnt/Malnutrition Patient General Information Nutritional Screening High Risk Diagnosis Psychosis Pertinent Medical Hx/Surgical Hx CAD,CHF,DM II dementia, HTN Subjective Information Patient in bed at time of visit. Per nursing notes, patient is confused and forgetful. Current Diet Order/ Nutrition Support Regular Patient / S.O Not Indicated Pertinent Medications maalox, lipitor, dulcolax, novolog, levemir, MOM, Metformin, Theragran Pertinent Labs (12/05) BUN 28, Glucose 291, Albumin 3.6 Nutritional Hx/Data Height 1.63 m Height (Calculated Centimeters) 162.6 Current Weight (lbs) 72.575 kg Weight (Calculated Kilograms) 72.6 Weight (Calculated Grams) 49753.8 [place] Body Weight 120 % [place] Body Weight 133 Body Mass Index (BMI) 27.4 Recent Weight Change No Weight Status Overweight GI Symptoms GI Symptoms None Last BM none noted since admission Difficult in: None Food Allergies No Cultural/Ethnic/Protestant Belief none indicated Usual diet at home unknown Skin Integrity/Comment: Frank[place] 17, area of concern Current %PO Fair (50-74%) Estimated Nutritional Goals BEE in Kcals: Adj wt of IBW Calories/Kcals/Kg 25-30 kcal/kg using 59kg Adj wt Kcals Calculated ~9187-8404 kcal/day Protein: Adj wt of IBW Protein g/k-1.2 gm/kg Protein Calculated 60-70 gm/day Fluid: ml ~9269-7904 ml/day Nutritional Problem 1. Problem Problem Altered nutrition related lab values related to Etiology uncontrolled hyperglycemia aeb Signs/Symptoms: glucose 291 Intervention/Recommendation Comments 1. Consider modifying diet to 60gm CCHO for optimal glycemic control. Expected Outcomes/Goals Expected Outcomes/Goals Oral intake >75% of meals, weight stable or trend toward IBW, glucose normalizes
--- NOTE | 2018-12-10 10:02 | Progress Notes ---
DATE: 12/10/2018 SUBJECTIVE: Staff was spoken to. The patient is interviewed. Mood is noted to be irritable. Affect is constricted. Insight and judgment at this time are noted to be still impaired. The patient is screaming and yelling. The patient has been having difficult time to cope with the stress. No side effects to the medications are noted. The patient has been having difficult time to cope with the stress. The patient has been not able to contact for safety at this time. No side effects to the medications are noted. The patient is being closely monitored at this time. The patient has been having difficult time and hence she is not ready to be discharged to a lower level of care. PLAN: To continue the patient with the supportive therapy and followup. JOB# [id number]
[2018-12-11] MEDS: INSULIN ASPART SLIDING SCALE 100 UNITS/ML UNIT SUBQ SCH ×4 (06:38→21:11)
--- NOTE | 2018-12-11 06:57 | Progress Notes ---
DATE: 12/10/2018 SUBJECTIVE: The patient is seen and has been interviewed. Case is discussed with staff. Mood continues to be irritable and the patient is guarded and yelling as this speech writer approached the patient. The patient continues to have difficulty coping. The patient was unable to verbally contract for safety. The patient is having difficulty following through with staff direction. OBJECTIVE: Mood: irritable. Affect is constricted. Thought process is confused. The patient presents with some paranoid ideation. The patient did not answer questions about experiencing hallucinations or delusions. The patient's behavior continues with yelling episodes and with difficulty responding to behavioral redirection. ASSESSMENT AND PLAN: The patient continues to have difficulty following through with the treatment protocols and is not ready to be discharged. We provided limit setting and de-escalation. We encouraged the patient to demonstrate emotional and self-regulation. We provided remotivation for the patient to become compliant with all aspects of her care and treatment. We provided reality orientation and integration. We will continue to provide supportive psychotherapy along with behavioral therapy. We will follow up in 2-3 days to continue this treatment. JOB# [id number] MTDD
--- NOTE | 2018-12-11 08:33 | General Progress Note ---
Subjective - Review of Systems Service Date: 12/11/18 Subjective: Patient is confused . Objective - Results Result Diagrams: 12/05/18 12:44 12/05/18 12:44 Recent Labs: Laboratory Last Values WBC 10.4 Th/cmm (4.8-10.8) 12/05/18 12:44 RBC 4.11 Mil/cmm (3.80-5.20) 12/05/18 12:44 Hgb 12.6 gm/dL (12-16) 12/05/18 12:44 Hct 37.8 % (41.0-60) L 12/05/18 12:44 MCV 91.9 fl (81-100) 12/05/18 12:44 MCH 30.5 pg (27.0-31.0) 12/05/18 12:44 MCHC Differential 33.2 pg (28.0-36.0) 12/05/18 12:44 RDW 12.9 % (11.5-20.0) 12/05/18 12:44 Plt Count 328 Th/cmm (150-400) 12/05/18 12:44 MPV 8.2 fl 12/05/18 12:44 Neutrophils % 67.7 % (40.0-80.0) 12/05/18 12:44 Lymphocytes % 21.1 % (20.0-50.0) 12/05/18 12:44 Monocytes % 6.6 % (2.0-10.0) 12/05/18 12:44 Eosinophils % 4.0 % (0.0-5.0) 12/05/18 12:44 Basophils % 0.6 % (0.0-2.0) 12/05/18 12:44 PT 13.3 SECONDS (9.5-11.5) H 12/05/18 12:44 INR 1.30 (0.5-1.4) 12/05/18 12:44 PTT (Actin FS) 23.9 SECONDS (26.0-38.0) L 12/05/18 12:44 Sodium 138 mEq/L (136-145) 12/05/18 12:44 Potassium 4.3 mEq/L (3.5-5.1) 12/05/18 12:44 Chloride 110 mEq/L (98-107) H 12/05/18 12:44 Carbon Dioxide 18.3 mEq/L (21.0-31.0) L 12/05/18 12:44 Anion Gap 14.0 (7.0-16.0) 12/05/18 12:44 BUN 28 mg/dL (7-25) H 12/05/18 12:44 Creatinine 0.8 mg/dL (0.6-1.2) 12/05/18 12:44 Est GFR ( Amer) TNP 12/05/18 12:44 Est GFR (Non-Af Amer) TNP 12/05/18 12:44 BUN/Creatinine Ratio 35.0 12/05/18 12:44 Glucose 291 mg/dL (70-105) H 12/05/18 12:44 Calcium 8.5 mg/dL (8.6-10.3) L 12/05/18 12:44 Total Bilirubin 0.3 mg/dL (0.3-1.0) 12/05/18 12:44 AST 11 U/L (13-39) L 12/05/18 12:44 ALT 10 U/L (7-52) 12/05/18 12:44 Alkaline Phosphatase 57 U/L (34-104) 12/05/18 12:44 Troponin I < 0.01 ng/mL (0.01-0.05) L 12/05/18 12:44 Total Protein 5.9 gm/dL (6.0-8.3) L 12/05/18 12:44 Albumin 3.6 gm/dL (3.7-5.3) L 12/05/18 12:44 Globulin 2.3 gm/dL 12/05/18 12:44 Albumin/Globulin Ratio 1.6 (1.0-1.8) 12/05/18 12:44 Triglycerides 90 mg/dL (<150) 12/05/18 12:44 Cholesterol 115 mg/dL (<200) 12/05/18 12:44 LDL Cholesterol Direct 72 mg/dL (75-193) L 12/05/18 12:44 HDL Cholesterol 36 mg/dL (23-92) 12/05/18 12:44 TSH 1.75 uIU/ml (0.34-5.60) 12/05/18 12:44 - Physical Exam Vitals and I&O: Vital Signs Temp 98 F 12/11/18 05:41 Pulse 88 12/11/18 05:41 Resp 20 12/11/18 05:41 BP 103/58 12/11/18 05:41 Pulse Ox 99 12/11/18 05:41 Intake & Output 12/10/18 12/11/18 12/11/18 18:59 06:59 18:59 Intake Total 1200 Balance 1200 Weight (lbs) 72.575 kg Intake: Oral 1200 Other: # Voids 3 # Bowel Movements 0 Weight Source Bedscale Active Medications: Current Medications Acetaminophen (Tylenol) 650 mg PO Q4HR PRN PRN Reason: Mild Pain / Temp above 100 Stop: 02/03/19 18:20 Acetaminophen/Codeine Phosphate (Tylenol W/Codeine #3) 1 tab PO TID PRN PRN Reason: MOD/SEVERE PAIN Stop: 02/03/19 18:28 Al Hydrox/Mg Hydrox/Simethicone (Maalox) 30 ml PO Q4HR PRN PRN Reason: GI DISTRESS Stop: 02/03/19 18:20 Aspirin (Aspirin Chewable) 81 mg PO DAILY [facility] Stop: 02/04/19 08:59 Last Admin: 12/10/18 08:15 Dose: 81 mg Atorvastatin Calcium (Lipitor) 40 mg PO HS [facility]; Protocol Stop: 02/03/19 20:59 Last Admin: 12/10/18 20:50 Dose: 40 mg Bisacodyl (Dulcolax 10 Mg Supp) 10 mg RC DAILY PRN PRN Reason: IF MOM INEFFECTIVE Stop: 02/03/19 18:28 Divalproex Sodium (Depakote Dr) 125 mg PO Q12HR [facility]; Protocol Stop: 02/05/19 20:59 Last Admin: 12/10/18 20:50 Dose: 125 mg Enalapril Maleate (Vasotec) 10 mg PO DAILY [facility] Stop: 02/04/19 08:59 Last Admin: 12/10/18 08:16 Dose: 10 mg Glimepiride (Amaryl) 2 mg PO DAILY [facility] Stop: 02/04/19 08:59 Last Admin: 12/10/18 08:13 Dose: 2 mg Hydroxychloroquine Sulfate (Plaquenil) 200 mg PO BID [facility] Stop: 02/04/19 08:59 Last Admin: 12/10/18 18:00 Dose: 200 mg Insulin Aspart (Novolog Insulin Sliding Scale) 0 units SUBQ ACHS [facility]; Protocol Stop: 02/04/19 16:29 Last Admin: 12/11/18 06:38 Dose: Not Given Insulin Detemir (Levemir Insulin) 5 units SUBQ QAM [facility] Stop: 02/04/19 08:59 Last Admin: 12/10/18 08:24 Dose: 5 units Magnesium Hydroxide (Milk Of Magnesia) 30 ml PO HS PRN PRN Reason: Constipation Magnesium Hydroxide (Milk Of Magnesia) 30 ml PO DAILY PRN PRN Reason: BOWEL MAINTENANCE Stop: 02/03/19 18:28 Last Admin: 12/07/18 15:05 Dose: 30 ml Metformin HCl (Glucophage) 500 mg PO BIDWM [facility] Stop: 02/04/19 07:59 Last Admin: 12/10/18 18:00 Dose: 500 mg Multivitamins/Vitamin C (Theragran) 1 tab PO DAILY [facility] Stop: 02/04/19 08:59 Last Admin: 12/10/18 08:15 Dose: 1 tab Naproxen (Naprosyn) 500 mg PO BID [facility] Stop: 02/04/19 08:59 Last Admin: 12/10/18 18:00 Dose: 500 mg Quetiapine Fumarate (Seroquel) 12.5 mg PO HS [facility] Stop: 02/08/19 20:59 Last Admin: 12/10/18 20:50 Dose: 12.5 mg Simethicone (Mylicon) 80 mg PO Q4H PRN PRN Reason: GI DISTRESS Stop: 02/03/19 18:28 Tramadol HCl (Ultram) 50 mg PO TID PRN PRN Reason: PAIN Stop: 02/03/19 18:28 Zolpidem Tartrate (Ambien) 5 mg PO HS PRN PRN Reason: Insomnia Stop: 02/03/19 18:20 General: Alert, Other (Confused) HEENT: Atraumatic Neck: Supple Cardiovascular: Regular rate Lungs: Clear to auscultation Abdomen: Bowel sounds, Soft Extremities: Other (No edema) Neurological: Other (Non ambulatory) Skin: Other (Warm and dry) Psych/Mental Status: Other (Confused, not oriented) Assessment/Plan - Assessment Assessment: Patient is awake, alert, resting in bed, in no acute distress. Dx: Increased in agitation, Schizophrenia, Dementia, DM, S/P CVS, S/P Old [place]. - Plan Plan: Patient is under Psychiatric care, will continue with SNF meds. Will continue to monitor. Nutritional Asmnt/Malnutr-PDOC - Dietary Evaluation Malnutrition Findings (Please click <Entered> for more info): Nutritional Asmnt/Malnutrition Start: 12/06/18 09: 44 Text: Status: Complete Freq: Protocol: Document 12/06/18 09:44 [email or web address] (Rec: 12/06/18 09:55 MMULHERN RAJESH- FNS1) Nutritional Asmnt/Malnutrition Patient General Information Nutritional Screening High Risk Diagnosis Psychosis Pertinent Medical Hx/Surgical Hx CAD,CHF,DM II dementia, HTN Subjective Information Patient in bed at time of visit. Per nursing notes, patient is confused and forgetful. Current Diet Order/ Nutrition Support Regular Patient / S.O Not Indicated Pertinent Medications maalox, lipitor, dulcolax, novolog, levemir, MOM, Metformin, Theragran Pertinent Labs (12/05) BUN 28, Glucose 291, Albumin 3.6 Nutritional Hx/Data Height 1.63 m Height (Calculated Centimeters) 162.6 Current Weight (lbs) 72.575 kg Weight (Calculated Kilograms) 72.6 Weight (Calculated Grams) 52539.8 [place] Body Weight 120 % [place] Body Weight 133 Body Mass Index (BMI) 27.4 Recent Weight Change No Weight Status Overweight GI Symptoms GI Symptoms None Last BM none noted since admission Difficult in: None Food Allergies No Cultural/Ethnic/[employer]ybeterian Belief none indicated Usual diet at home unknown Skin Integrity/Comment: [place] 17, area of concern Current %PO Fair (50-74%) Estimated Nutritional Goals BEE in Kcals: Adj wt of IBW Calories/Kcals/Kg 25-30 kcal/kg using 59kg Adj wt Kcals Calculated ~4335-8783 kcal/day Protein: Adj wt of IBW Protein g/k-1.2 gm/kg Protein Calculated 60-70 gm/day Fluid: ml ~6679-5380 ml/day Nutritional Problem 1. Problem Problem Altered nutrition related lab values related to Etiology uncontrolled hyperglycemia aeb Signs/Symptoms: glucose 291 Intervention/Recommendation Comments 1. Consider modifying diet to 60gm CCHO for optimal glycemic control. Expected Outcomes/Goals Expected Outcomes/Goals Oral intake >75% of meals, weight stable or trend toward IBW, glucose normalizes
[2018-12-11] MEDS: Insulin Detemir 100 units/mL 10mL Vial SUBQ SCH (10:00)
[2018-12-11] MEDS: Hydroxychloroquine 200 mg Tab PO SCH ×2 (10:00→17:43)
[2018-12-11] MEDS: Aspirin 81mg Chewable Tab PO SCH (10:00)
[2018-12-11] MEDS: Multivitamin Tab PO SCH (10:00)
--- NOTE | 2018-12-11 16:44 | Progress Notes ---
DATE: 12/11/2018 SUBJECTIVE: Staff was spoken to. The patient is interviewed. Mood is noted to be irritable. Affect is constricted. Coping skills are noted to be still poor. The patient; however, has been not that aggressive and screaming has been coming down. No side effects to the medications are noted. ASSESSMENT: The patient's impulsivity is coming down. PLAN: To continue the patient with supportive therapy. Encouraged the patient to verbalize the concerns rather than to act out. [facility]# [id number]
[2018-12-12] MEDS: INSULIN ASPART SLIDING SCALE 100 UNITS/ML UNIT SUBQ SCH ×2 (08:22→12:18)
[2018-12-12] MEDS: Insulin Detemir 100 units/mL 10mL Vial SUBQ SCH ×2 (09:07→09:25)
[2018-12-12] MEDS: Multivitamin Tab PO SCH ×2 (09:18→09:26)
[2018-12-12] MEDS: Aspirin 81mg Chewable Tab PO SCH ×2 (09:19→09:25)
[2018-12-12] MEDS: Hydroxychloroquine 200 mg Tab PO SCH ×2 (09:19→09:24)
--- NOTE | 2018-12-12 20:10 | Progress Notes ---
DATE: 12/12/2018 SUBJECTIVE: The patient is seen and interviewed. Case is discussed with staff. The patient continues to present as irritable. The staff reports the patient's yelling episodes have been coming down. The patient has not had any aggressive behavior in the last 24 hours. The patient continues to be confused. OBJECTIVE: Mood irritable. Affect constricted. Thought process shows to be confused. The patient denied any delusions or hallucinations. The patient's impulsivity is lessening. ASSESSMENT AND PLAN: The patient's impulse control is improving. We provided supportive psychotherapy which included reality integration. We provided coping strategies for phase of life issues and for the patient to adjust to her long-term care environment. We provided remotivation for the patient to stay compliant with all aspects of her care and treatment. We encouraged the patient to continue to demonstrate emotional and self-regulation and to verbalize her concerns versus acting out in demanding behavior or with yelling episodes. The patient will be followed up in 2-3 days to continue present treatment if the patient is still admitted. [facility]# [id number] YAIR
--- NOTE | 2018-12-13 12:57 | Progress Notes ---
DATE: 12/12/2018 SUBJECTIVE: Staff was spoken to. The patient is interviewed. Mood is noted to be less irritable. Affect is appropriate. Not suicidal or homicidal. Insight and judgment are improving. Impulse control seems to be fair. No side effects to the medications are noted. The patient has been able to verbalize the concerns rather than to act out. ASSESSMENT: The patient is stabilizing. PLAN: To discharge the patient today for followup on outpatient basis. [facility]# [id number]
--- NOTE | 2018-12-14 15:00 | Discharge Summary ---
DATE OF DISCHARGE: 12/12/2018 IDENTIFYING DATA: The patient is admitted over here because of her acute agitation and aggressive behavior. CHIEF COMPLAINT: "I am okay, I need to go home." DIAGNOSES AT THE TIME OF ADMISSION: AXIS I: Psychotic disorder, not otherwise specified. AXIS IB: Dementia and behavioral changes secondary to dementia. AXIS II: None. AXIS III: As per Dr. Allen. HISTORY OF PRESENT ILLNESS: Please refer to the [id number] dictation done by me. HOSPITAL COURSE AND RESPONSE TO TREATMENT: The patient has been observed on inpatient unit, provided with supportive psychotherapy. The patient started to scream and yell when she does not get her way. The patient has been closely monitored and encouraged to verbalize the concerns rather than to act out. The patient has been given the valproic acid for her aggressive behavior 125 mg twice a day and the patient also has been placed on the Seroquel, which was given at 12.5 mg at bedtime and with these medications, the patient was observed. The patient was finally discharged on 12/12/2018 to [facility] with recommendation that she is going to be seeking treatment on an outpatient basis. MENTAL STATUS EXAMINATION: At the time of discharge, the patient's mood is noted to be less irritable. Affect is appropriate. Not suicidal or homicidal. Insight and judgment noted to be impaired. Impulse control is also noted to be fair. PROGNOSIS: At the time of discharge noted to be stable. [facility]# [id number]
== END 2018-12-12 14:30 | DRG 885 ==
LOC: ER 12:27 → GERO 14:30
PROVIDERS: ADMIT Psychiatry & Neurology Psychiatry; ATTEND Psychiatry & Neurology Psychiatry
DX: F20.9 Schizophrenia, unspecified (principal); F03.91 Unspecified dementia, unspecified severity, with behavioral disturbance; F29 Unspecified psychosis not due to a substance or known physiological condition; E11.9 Type 2 diabetes mellitus without complications; R56.9 Unspecified convulsions; I25.10 Atherosclerotic heart disease of native coronary artery without angina pectoris; I25.2 Old myocardial infarction; Z79.4 Long term (current) use of insulin; Z86.73 Personal history of transient ischemic attack (TIA), and cerebral infarction without residual deficits
CPT/HCPCS: 36415-UA; 71045-TC; 80053-TC; 80061-TC; 83036-90; 84443-TC; 84484-TC; 85025-TC; 85610-TC; 85730-TC; J1815; Z7610